=== PATIENT | male | born 1975 | race Caucasian/White ===

== ENCOUNTER → 2017-08-16 | Outpatient (CLI) | payer OTHER ==
[2013-09-11 08:25] VITALS: BP 104/60
--- NOTE | 2017-08-17 06:26 | RAD ---
HISTORY: Cough, shortness of breath Study: Chest PA and lateral Comparison: 09/10/2013, report Findings: There is a pacemaker present on the left. The heart is within normal limits in size. The santino are nor mal. The lung mir are clear. No pleural effusion is identified. The bony thorax is unremarkable. IMPRESSION: No significant abnormality identified Reported By:
== END ==
LOC: RAD 18:53
PROVIDERS: ATTEND Emergency Medicine
DX: R06.02 Shortness of breath (principal)
CPT/HCPCS: 71046

== ENCOUNTER 2021-07-07 22:20 | Inpatient (IN) ==
[2021-07-08] MEDS ORDERED: LASIX IVP ONE ×2 (00:02→00:15)
--- NOTE | 2021-07-08 00:02 | DR.EXTPAIN ---
HPI Time seen Time Seen by Provider: 07/07/21 23:58 PCP Primary Care Physician: [facility] Complaint/Symptoms Chief Complaint Doctor Comments: 46 y/o male, recently hospitalized with Covid 2 weeks ago, presents with worsening swelling of his bilateral legs. + h/o cardiomyopathy. Is on lasix and spironolactone, not helping. Gained 30 lbs since admmission to hospital. Having marked swelling of both legs, from feet up to thighs. + blisters, oozing, erythema of left foot, started few days ago. No fever or chills. Has shortness of breath at times, worse with laying down, exertion. Chief Complaint:: PT AMBULATORY IN ED WITH C/O BILATERAL FEET AND LEGS SWELLING FROM HIS CHF. PT WAS HERE IN ER ON 06/24/21 AND FLOWN TO THE [facility] IN [place], [place]. PT STATES FEET AND LEGS STARTED SWELLING WHILE HE WAS THERE, PUT ON LASIX BUT STATES LASIX IS NOT WORKING. COVID-19 Coronavirus risk:travel/contact w/high risk person: No Has patient experienced Coronavirus symptoms: No Nurses notes reviewed Nurses Notes Review: Yes Source History Provided: Patient Mode of arrival Mode of Arrival: Ambulatory Timing Onset of Chief Complaint: 06/24/21 PMH PMH Past Medical History: Yes Past Medical History: CHF, Diabetes, Dyslipidemia, GERD and Hypertension Past Surgical History: Yes Surgical History: Other Past Surgical History Comment: PPM PENILE IMPLANT Family History History of Family Medical Conditions: Yes Family Medical History: Diabetes Mellitus, Cancer, [place] and Hypertension Social History Does patient currently use any type of tobacco product: No Have you used tobacco products in the last 12 months: No Type of Tobacco Use: None Does any household member use tobacco: No Alcohol Use: None Do you use any recreational Drugs:: No Lives With: Alone Lives Where: Home Travel Risk Coronavirus risk:travel/contact w/high risk person: No Has patient experienced Coronavirus symptoms: No Infectious screening In the last 2 months have you had wt loss of >10#?: NO Have you had fever, night sweats or hemotysis?: No Have you traveled outside the country in the last 6 months?: No Isolation: Standard ROS Review of Systems Constitutional: Malaise and Weakness Eyes: No Symptoms Reported ENTM: No Symptoms Reported Respiratoy: Short of Breath Cardiovascular: Edema Gastrointestinal/Abdominal: No Symptoms Reported Genitourinary: No Symptoms Reported Neurological: No Symptoms Reported Musculoskeletal: Muscle Pain Integumentary: No Symptoms Reported Hematologic/Lymphatic: No Symptoms Reported Psychiatric: No Symptoms Reported All Other Systems: Reviewed and Negative PE Vital Signs Vitals: Pulse Rate 101 Respiratory Rate 27 Blood Pressure [Left Arm] 112/60 Blood Pressure 85/62 O2 Sat by Pulse Oximetry 96 General Limitations: No Limitations General Appearance: Alert and In No Apparent Distress Head Head Exam: Normal Inspection Eyes Eye exam: Normal Appearance, PERRL and EOMI ENT ENT Exam: Normal Exam Neck Neck Exam: Normal Inspection and Full ROM Respiratory Respiratory Exam: Normal Lung Sounds Bilat; negative Accessory Muscle Use and Respiratory Distress Respiratory Exam: Bilateral: Clear to Auscultation Cardiovascular Cardiovascular Exam: Regular Rate, Normal Rhythm and Normal Heart Sounds Abdominal Exam Abdominal Exam: Normal Inspection and Soft; negative Tenderness Extremities Extremities Exam: Edema (4+ edema, with induration, of both lower exts.) Lower Extremities Foot/Toe Exam: Other (L foot - + irregular, oozing blisters of dorsal foot, with erythema/tenderness) Back Back Exam: Normal Inspection Neurological Neurological Exam: Alert, Oriented X3 and CN II-XII Intact; negative Motor Sensory Deficit Psychiatric Psychiatric Exam: Normal Affect Skin Skin Exam: Warm and Dry MDM Differential Diagnosis Differential Diagnosis: Other (fluid overload, cellulitis, renal failure. CHF) COURSE Treatment Treatment: 46 y/o male, diagnosed with covid here 2 weeks ago, transferred to [facility]. H/o cardiomyopathy. + 30 lb weight gain since hospitalization. + marked edema of bilateral lower exts, up thru thighs. W/u initiated. Given IV lasix, with some urine output. Pt has already been on oral lasix/spironolactone. Now with worsening blisters of left dorsal forefoot. Concerning for developing cellulitis, is a diabetic. 0125 - labs show albumin to be low at 2.0. Will give IV albumin to help with his edema. Given IV antibiotic, doxycycline, to cover for possible cellulitis of his left foot. Pt is still + for covid. Recommend admission for further treatment, diuresis. Discussed with Dr Mallory, accepts the admission. ROR Labs Reviewed Laboratory Results Reviewed?: Yes Result Diagrams: 07/08/21 00:14 07/08/21 00:14 Laboratory: WBC 8.2 X10^3/uL (3.6-10.0) 07/08/21 00:14 RBC 3.98 X10^6/uL (4.7-6.0) L 07/08/21 00:14 Hgb 11.2 g/dL (13.5-18.0) L 07/08/21 00:14 Hct 33.4 % (42.0-54.0) L 07/08/21 00:14 MCV 84.0 fL (80.0-100.0) 07/08/21 00:14 MCH 28.1 pg (27.0-34.0) 07/08/21 00:14 MCHC 33.5 g/dL (33.0-35.0) 07/08/21 00:14 RDW 13.5 % (11.6-16.5) 07/08/21 00:14 Plt Count 368 X10^3/uL (150.0-450.0) 07/08/21 00:14 MPV 8.8 fL (7.4-11.0) 07/08/21 00:14 Neut % (Auto) 72.5 % (42.0-75.0) 07/08/21 00:14 Lymph % (Auto) 15.9 % (21.0-51.0) L 07/08/21 00:14 [place] % (Auto) 10.5 % (0.0-13.0) 07/08/21 00:14 Eos % (Auto) 0.5 % (0.9-2.9) L 07/08/21 00:14 Baso % (Auto) 0.6 % (0.2-1.0) 07/08/21 00:14 Neut # (Auto) 6.0 x10^3/uL (2.2-4.8) H 07/08/21 00:14 Lymph # (Auto) 1.3 X10^3/uL (1.3-2.9) 07/08/21 00:14 [place] # (Auto) 0.9 x10^3/uL (0.3-0.8) H 07/08/21 00:14 Eos # (Auto) 0.0 x10^3/uL (0.0-0.2) 07/08/21 00:14 Baso # (Auto) 0.0 X10^3/uL (0.0-0.1) 07/08/21 00:14 Absolute Nucleated RBC 0.0 /100WBC 07/08/21 00:14 Sodium 133 mmol/L (136-145) L 07/08/21 00:14 Corrected Sodium 140 mmol/L (136-145) 07/08/21 00:14 Potassium 4.3 mmol/L (3.5-5.1) 07/08/21 00:14 Chloride 99 mmol/L (98-107) 07/08/21 00:14 Carbon Dioxide 29.5 mmol/L (21-32) 07/08/21 00:14 BUN 21 mg/dL (7-18) H 07/08/21 00:14 Creatinine 1.02 mg/dL (0.70-1.30) 07/08/21 00:14 Est GFR (MDRD) Af Amer > 60 (>60) 07/08/21 00:14 Est GFR (MDRD) Non-Af > 60 (>60) 07/08/21 00:14 Glucose 380 mg/dL (65-99) H 07/08/21 00:14 Calcium 7.4 mg/dL (8.5-10.1) L 07/08/21 00:14 Corrected Calcium 9.0 mg/dL (8.5-10.1) 07/08/21 00:14 Total Bilirubin 0.20 mg/dL (0.2-1.0) 07/08/21 00:14 AST 43 Units/L (15-37) H 07/08/21 00:14 ALT 73 Units/L (12-78) 07/08/21 00:14 Alkaline Phosphatase 275 Units/L (46-116) H 07/08/21 00:14 Creatine Kinase 40 Units/L (39-308) 07/08/21 00:14 CK-MB (CK-2) 1.4 ng/mL (0-4.0) 07/08/21 00:14 CK/CKMB % Calc 3.5 % (<4) 07/08/21 00:14 Troponin I High Sens 19.8 ng/L (4.0-60.0) 07/08/21 00:14 B-Natriuretic Peptide 288 pg/mL (0-79) H 07/08/21 00:14 Total Protein 5.8 g/dL (6.4-8.2) L 07/08/21 00:14 Albumin 2.0 g/dL (3.4-5.0) L 07/08/21 00:14 Globulin 3.8 g/dL (2.5-4.5) 07/08/21 00:14 Albumin/Globulin Ratio 0.5 Ratio (1.1-2.1) L 07/08/21 00:14 SARS CoV-2 RNA Rapid RUBEN Positive (NEGATIVE) A 07/08/21 01:34 Other Results Comments: Labs - does have elevated glucose of 380, BNP mildly elevated at 288. Albumin low at 2.0. Is still covid positive. XRAY XRAY Interpreted by: Both X-ray Results: + bilateral opacifications c/w recent covid infection. EKG Rate: 104 [place]: LAD Rhythm: Paced Block: IVCD ST: Nonsp Opioid Opioid Risk Tool Age (Delvin box if 16-45): No History of Preadolescent Sexual Abuse: No Total: 0 Total Score Risk Category: Low Risk Copyright: Hernandez AREVALO predicting aberrant behaviors Diagnosis Discharge Problem: Cellulitis of foot, left, Dependent edema, COVID-19 virus infection
--- NOTE | 2021-07-08 00:20 | RAD ---
HISTORYFLUID OVERLOAD PMH: CHF, DM, HTN PSH: PPM, PENILE IMPLANTSTUDYCHEST, 1 [id number] trachea is midline. Permanent pacing device. The cardiac silhouette is unremarkable. Patchy bilateral infiltrates unchanged. No pneumothorax. The bony thorax is unremarkable.IMPRESSIONStable portable chest.Electronically signed by: Jesu Ordoñez (Jul 08, 2021 00:18:49)
[2021-07-08 00:31] LABS: BASOPHILS % (AUTO) 0.6 % (0.2-1.0); EOSINOPHILS % (AUTO) 0.5 % (0.9-2.9); HEMATOCRIT 33.4 % (42.0-54.0); HEMOGLOBIN 11.2 g/dL (13.5-18.0); LYMPHOCYTES # (AUTO) 1.3 X10^3/uL (1.3-2.9); LYMPHOCYTES % (AUTO) 15.9 % (21.0-51.0); MEAN CORPUSCULAR HEMOGLOBIN 28.1 pg (27.0-34.0); MEAN CORPUSCULAR HGB CONC 33.5 g/dL (33.0-35.0); MEAN PLATELET VOLUME 8.8 fL (7.4-11.0); MONOCYTES # (AUTO) 0.9 x10^3/uL (0.3-0.8); MONOCYTES % (AUTO) 10.5 % (0.0-13.0); NEUTROPHILS % (AUTO) 72.5 % (42.0-75.0); RED BLOOD COUNT 3.98 X10^6/uL (4.7-6.0); RED CELL DISTRIBUTION WIDTH 13.5 % (11.6-16.5); WHITE BLOOD COUNT 8.2 X10^3/uL (3.6-10.0)
[2021-07-08 00:49] LABS: ALANINE AMINOTRANSFERASE 73 Units/L (12-78); ALKALINE PHOSPHATASE 275 Units/L (46-116); ASPARTATE AMINO TRANSFERASE 43 Units/L (15-37); BLOOD UREA NITROGEN 21 mg/dL (7-18); CALCIUM 7.4 mg/dL (8.5-10.1); CARBON DIOXIDE 29.5 mmol/L (21-32); CHLORIDE 99 mmol/L (98-107); CKMB % 3.5 % (<4); COR NA(FOR HYPERGLY) 140 mmol/L (136-145); CREATINE KINASE 40 Units/L (39-308); CREATINE KINASE MB 1.4 ng/mL (0-4.0); CREATININE 1.02 mg/dL (0.70-1.30); SODIUM 133 mmol/L (136-145); TOTAL PROTEIN 5.8 g/dL (6.4-8.2); eGFR NON BLACK RACES > 60 (>60)
[2021-07-08] MEDS ORDERED: ALBUMIN HUMAN 25%- 100 ML 100 ML IV ONE (01:33)
[2021-07-08] MEDS ORDERED: VIBRAMYCIN 100 MG in D5W 250 ML IV 250 ML IV ONE (01:59)
[2021-07-08 02:56] LABS: BILIRUBIN,URINE NEGATIVE (NEGATIVE); BLOOD/HEMOGLOBIN,URINE NEGATIVE (NEGATIVE); GLUCOSE, URINE 4+ (NEGATIVE); KETONES,URINE NEGATIVE (NEGATIVE); LEUKOCYTE ESTERASE ,URINE NEGATIVE (NEGATIVE); NITRITES,URINE NEGATIVE (NEGATIVE); PROTEIN,URINE 1+ (NEGATIVE); UROBILINOGEN,URINE NORMAL (NORMAL)
[2021-07-08 03:56] LABS: APPEARANCE,URINE CLEAR (CLEAR); BACTERIA,URINE TRACE /HPF (NEGATIVE); COLOR,URINE YELLOW (YELLOW); RBC,URINE NONE SEEN /HPF (0-3); SQUAMOUS EPITHELIAL CELL,UR NEGATIVE /HPF (NEGATIVE)
[2021-07-08 03:57] LABS: HYALINE CASTS, URINE FEW /LPF (NEGATIVE)
[2021-07-08 04:29] VITALS: BMI 31.8
[2021-07-08 05:30] LABS: BASOPHILS # (AUTO) 0.1 X10^3/uL (0.0-0.1); BASOPHILS % (AUTO) 0.8 % (0.2-1.0); EOSINOPHILS # (AUTO) 0.1 x10^3/uL (0.0-0.2); EOSINOPHILS % (AUTO) 0.8 % (0.9-2.9); HEMATOCRIT 35.7 % (42.0-54.0); HEMOGLOBIN 11.9 g/dL (13.5-18.0); LYMPHOCYTES # (AUTO) 1.3 X10^3/uL (1.3-2.9); LYMPHOCYTES % (AUTO) 16.3 % (21.0-51.0); MEAN CORPUSCULAR HGB CONC 33.3 g/dL (33.0-35.0); MEAN CORPUSCULAR VOLUME 84.2 fL (80.0-100.0); MEAN PLATELET VOLUME 9.2 fL (7.4-11.0); MONOCYTES # (AUTO) 0.8 x10^3/uL (0.3-0.8); MONOCYTES % (AUTO) 10.1 % (0.0-13.0); NEUTROPHILS # (AUTO) 5.7 x10^3/uL (2.2-4.8); RED BLOOD COUNT 4.24 X10^6/uL (4.7-6.0); RED CELL DISTRIBUTION WIDTH 13.6 % (11.6-16.5)
[2021-07-08 05:44] LABS: ALANINE AMINOTRANSFERASE 78 Units/L (12-78); ALBUMIN 2.6 g/dL (3.4-5.0); ALKALINE PHOSPHATASE 281 Units/L (46-116); ASPARTATE AMINO TRANSFERASE 41 Units/L (15-37); BLOOD UREA NITROGEN 22 mg/dL (7-18); CALCIUM 7.7 mg/dL (8.5-10.1); CARBON DIOXIDE 28.3 mmol/L (21-32); CHLORIDE 99 mmol/L (98-107); COR CA(FOR HYPOALB) 8.8 mg/dL (8.5-10.1); COR NA(FOR HYPERGLY) 141 mmol/L (136-145); CREATININE 0.94 mg/dL (0.70-1.30); SODIUM 135 mmol/L (136-145); TOTAL PROTEIN 6.5 g/dL (6.4-8.2); eGFR NON BLACK RACES > 60 (>60)
[2021-07-08] MEDS: NovoLIN R (or HumuLIN R) SUBCUT PRN ×4 (05:58→21:04)
[2021-07-08] MEDS: ULTRAM PO PRN ×3 (05:59→21:10)
[2021-07-08] MEDS: PriLOSEC PO SCH ×2 (08:29→21:05)
[2021-07-08] MEDS: VIBRAMYCIN 100 MG in D5W 250 ML IV 250 ML IV SCH ×2 (08:30→21:07)
[2021-07-08] MEDS: LASIX IVP SCH ×2 (08:38→16:38)
[2021-07-08] MEDS: ALDACTONE TAB 25 MG PO SCH (08:50)
[2021-07-08] MEDS ORDERED: ZESTRIL TAB 5 MG PO SCH (09:00)
[2021-07-08] MEDS ORDERED: CLEOCIN PO SCH (09:00)
[2021-07-08] MEDS ORDERED: LISINOPRIL 40 MG PO SCH (09:00)
[2021-07-08] MEDS ORDERED: LOVENOX INJ 40 MG SYR SC SCH (10:00)
[2021-07-08] MEDS: COREG TAB 12.5 MG PO SCH ×2 (10:25→21:01)
--- NOTE | 2021-07-08 10:33 | DR.H&P ---
H&P History & Physical for Day of: H&P Date: 07/08/21 Chief Complaint Chief Complaint: leg swelling and redness Allergies Allergies Allergy/AdvReac Type Severity Reaction Status Date / Time Penicillins Allergy Verified 06/24/21 15:06 History of Present Illness History of Present Illness: Mr Gay is a 46y/o male with a PMH of cardiomyopathy s/p ACID, CHF, Type 2 DM, HTN, HLD and anxiety presented with worsening bilateral leg swelling, redness and drainage. Patient was seen here in the ER on 06/24/21 for URI and CHF Sx, found to be covid + so was transferred to [facility] for further care. Patient states he was admitted there for a week and treated for COVID pneumonia. He had a device check there and everything was working well. He states since he has been home, his leg swelling has worsened. He states his left leg has multiple open wounds and blisters with drainage. He also has SOB on exertion. Denies cough, fever or chills. He does see Cardiology in [place]. Patient remains on room air. ER work-up - COVID-19 + - Labs: Hgb 11.9 Glucose 359 trop (-) Patient was started on IV lasix and IV antibiotics for leg wounds. Plan: Continue telemetry, strict I/Os, daily weights. Continue IV lasix 40 mg BID, resume home medications. Will hold lisinopril due to borderline low BP. Continue doxycycline, add clindamycin. Get wound cultures. Daily dressing changes. Advised patient to keep his legs elevated. Patient reports severe anxiety with laying down and prefers to sit up with legs on the side of the bed. He states he will try to keep them propped up to help with the swelling. Continue pain control. Increase lantus to 20 units qhS, continue SSI. Need to obtain records from recent admission at the [facility] in [place]. Monitor AM lab s/imaging. Past Medical History Past Medical History: CHF, Diabetes, Dyslipidemia, GERD and Hypertension Additional Medical History: Hx Cardiac Arrhythmia, Diabetic neuropathy Past Surgical History Surgical History: Other Family History Family Medical History: Diabetes Mellitus, Coronary Artery Disease and Hypertension Social History Does patient currently use any type of tobacco product: No Have you used tobacco products in the last 12 months: No Type of Tobacco Use: None Does any household member use tobacco: No Alcohol Use: None Drug Use: None Medications Home Medications: Penicillins Allergy (Verified 06/24/21 15:06) CONTINUE taking the following medications furosemide 40 mg PO BID 07/08/21 [History] lisinopril 2.5 mg PO DAILY 07/08/21 [History] spironolactone 25 mg PO DAILY 07/08/21 [History] Labs Result Diagrams: 07/08/21 04:47 07/08/21 04:47 Labs: Laboratory WBC 8.0 X10^3/uL (3.6-10.0) 07/08/21 04:47 RBC 4.24 X10^6/uL (4.7-6.0) L 07/08/21 04:47 Hgb 11.9 g/dL (13.5-18.0) L 07/08/21 04:47 Hct 35.7 % (42.0-54.0) L 07/08/21 04:47 MCV 84.2 fL (80.0-100.0) 07/08/21 04:47 MCH 28.0 pg (27.0-34.0) 07/08/21 04:47 MCHC 33.3 g/dL (33.0-35.0) 07/08/21 04:47 RDW 13.6 % (11.6-16.5) 07/08/21 04:47 Plt Count 353 X10^3/uL (150.0-450.0) 07/08/21 04:47 MPV 9.2 fL (7.4-11.0) 07/08/21 04:47 Neut % (Auto) 72.0 % (42.0-75.0) 07/08/21 04:47 Lymph % (Auto) 16.3 % (21.0-51.0) L 07/08/21 04:47 [place] % (Auto) 10.1 % (0.0-13.0) 07/08/21 04:47 Eos % (Auto) 0.8 % (0.9-2.9) L 07/08/21 04:47 Baso % (Auto) 0.8 % (0.2-1.0) 07/08/21 04:47 Neut # (Auto) 5.7 x10^3/uL (2.2-4.8) H 07/08/21 04:47 Lymph # (Auto) 1.3 X10^3/uL (1.3-2.9) 07/08/21 04:47 [place] # (Auto) 0.8 x10^3/uL (0.3-0.8) 07/08/21 04:47 Eos # (Auto) 0.1 x10^3/uL (0.0-0.2) 07/08/21 04:47 Baso # (Auto) 0.1 X10^3/uL (0.0-0.1) 07/08/21 04:47 Absolute Nucleated RBC 0.0 /100WBC 07/08/21 04:47 Sodium 135 mmol/L (136-145) L 07/08/21 04:47 Corrected Sodium 141 mmol/L (136-145) 07/08/21 04:47 Potassium 4.1 mmol/L (3.5-5.1) 07/08/21 04:47 Chloride 99 mmol/L (98-107) 07/08/21 04:47 Carbon Dioxide 28.3 mmol/L (21-32) 07/08/21 04:47 BUN 22 mg/dL (7-18) H 07/08/21 04:47 Creatinine 0.94 mg/dL (0.70-1.30) 07/08/21 04:47 Est GFR (MDRD) Af Amer > 60 (>60) 07/08/21 04:47 Est GFR (MDRD) Non-Af > 60 (>60) 07/08/21 04:47 Glucose 359 mg/dL (65-99) H 07/08/21 04:47 Calcium 7.7 mg/dL (8.5-10.1) L 07/08/21 04:47 Corrected Calcium 8.8 mg/dL (8.5-10.1) 07/08/21 04:47 Total Bilirubin 0.50 mg/dL (0.2-1.0) 07/08/21 04:47 AST 41 Units/L (15-37) H 07/08/21 04:47 ALT 78 Units/L (12-78) 07/08/21 04:47 Alkaline Phosphatase 281 Units/L (46-116) H 07/08/21 04:47 Creatine Kinase 40 Units/L (39-308) 07/08/21 00:14 CK-MB (CK-2) 1.4 ng/mL (0-4.0) 07/08/21 00:14 CK/CKMB % Calc 3.5 % (<4) 07/08/21 00:14 Troponin I High Sens 19.8 ng/L (4.0-60.0) 07/08/21 00:14 B-Natriuretic Peptide 288 pg/mL (0-79) H 07/08/21 00:14 Total Protein 6.5 g/dL (6.4-8.2) 07/08/21 04:47 Albumin 2.6 g/dL (3.4-5.0) L 07/08/21 04:47 Globulin 3.9 g/dL (2.5-4.5) 07/08/21 04:47 Albumin/Globulin Ratio 0.7 Ratio (1.1-2.1) L 07/08/21 04:47 Specimen Type Clean catch urine 07/08/21 02:42 Urine Color Yellow (YELLOW) 07/08/21 02:42 Urine Appearance Clear (CLEAR) 07/08/21 02:42 Urine pH 6.0 (5.0 - 8.0) 07/08/21 02:42 Ur Specific [place] 1.015 (1.000-1.030) 07/08/21 02:42 Urine Protein 1+ (NEGATIVE) 07/08/21 02:42 Urine Glucose (UA) 4+ (NEGATIVE) 07/08/21 02:42 Urine Ketones Negative (NEGATIVE) 07/08/21 02:42 Urine Occult Blood Negative (NEGATIVE) 07/08/21 02:42 Urine Nitrite Negative (NEGATIVE) 07/08/21 02:42 Urine Bilirubin Negative (NEGATIVE) 07/08/21 02:42 Urine Urobilinogen Normal (NORMAL) 07/08/21 02:42 Ur Leukocyte Esterase Negative (NEGATIVE) 07/08/21 02:42 Urine RBC None seen /HPF (0-3) 07/08/21 02:42 Urine WBC None seen /HPF (0-5) 07/08/21 02:42 Ur Squamous Epith Cells Negative /HPF (NEGATIVE) 07/08/21 02:42 Urine Bacteria Trace /HPF (NEGATIVE) 07/08/21 02:42 Hyaline Casts Few /LPF (NEGATIVE) 07/08/21 02:42 Ur Culture Indicated? No/not indicated 07/08/21 02:42 SARS CoV-2 RNA Rapid RUBEN Positive (NEGATIVE) A 07/08/21 01:34 Review of Systems Constitutional: No Symptoms Reported Eyes: No Symptoms Reported ENT: No Symptoms Reported Respiratory: SOB with Excertion Cardiovascular: Edema Gastrointestinal: No Symptoms Reported Genitourinary: No Symptoms Reported Musculoskeletal: No Symptoms Reported Skin: Wound and Other (left leg and foot wound ) Neurological: No Symptoms Reported Physical Exam Vital Signs: Temperature 97.8 F Pulse Rate [Bilateral Radial] 103 Pulse Rate 103 Respiratory Rate 20 Blood Pressure [Left Arm] 98/70 Blood Pressure 99/71 O2 Sat by Pulse Oximetry 89 Oriented: Normal Eyes: Normal Ear: Normal Nose: Normal Throat: Normal Respiratory: RLL Rales and LLL Rales Cardiovascular: Normal and Edema (3+ pitting edema, erythema in both LE ) Auscultation: Bowel Sounds: Normal Tenderness: Normal Skin: Wound (left foot and leg wounds - dressing intact ) Psychiatric: Anxiety Mood Description: Calm Affect: Normal Speech Pattern: Clear and Appropriate Assessment/Plan (1) Dependent edema: Status: Acute (2) Cellulitis of foot, left: Status: Acute (3) COVID-19: Status: Acute (4) Diabetes mellitus, type 2: Qualifiers: Diabetes mellitus complication status: with hyperglycemia Diabetes mellitus assistant terminal manager insulin use: with assistant terminal manager use Qualified Code(s): E11.65 - Type 2 diabetes mellitus with hyperglycemia; Z79.4 - extermination supervisor (current) use of insulin Status: Chronic (5) History of cardiac arrhythmia: Status: Chronic (6) Hypertension: Qualifiers: Hypertension type: primary hypertension Qualified Code(s): I10 - Essential (primary) hypertension Status: Chronic (7) GERD (gastroesophageal reflux disease): Qualifiers: Esophagitis presence: esophagitis presence not specified Qualified Code(s): K21.9 - Gastro-esophageal reflux disease without esophagitis Status: Chronic (8) CHF (congestive heart failure): Qualifiers: Heart failure chronicity: acute on chronic Heart failure type: unspecified Qualified Code(s): I50.9 - Heart failure, unspecified Status: Acute (9) AICD (automatic cardioverter/defibrillator) present: Status: Acute Review H&P Reviewed: Yes Patient was examined?: Yes
[2021-07-08] MEDS: CLEOCIN 300 MG IV PREMIX 300 MG/50 ML BAG IV SCH ×3 (11:00→22:32)
[2021-07-08] MEDS: NS 500 ML IV 500 ML IV SCH (11:00)
[2021-07-08] MEDS: KLONOPIN TAB 0.5 MG PO PRN ×2 (12:30→21:10)
[2021-07-08] MEDS: SNACK - Diabetic Appropriate PO SCH (20:42)
[2021-07-08] MEDS ORDERED: ZOCOR TAB 40 MG PO SCH (21:00)
[2021-07-08] MEDS ORDERED: LANTUS SC SCH ×2 (21:00)
[2021-07-08] MEDS: NEURONTIN CAP 300 MG PO SCH (21:03)
[2021-07-09 05:25] LABS: BASOPHILS # (AUTO) 0.1 X10^3/uL (0.0-0.1); BASOPHILS % (AUTO) 0.7 % (0.2-1.0); EOSINOPHILS % (AUTO) 0.4 % (0.9-2.9); HEMOGLOBIN 11.7 g/dL (13.5-18.0); LYMPHOCYTES # (AUTO) 1.2 X10^3/uL (1.3-2.9); MEAN CORPUSCULAR HGB CONC 33.3 g/dL (33.0-35.0); MEAN CORPUSCULAR VOLUME 84.1 fL (80.0-100.0); MONOCYTES # (AUTO) 0.9 x10^3/uL (0.3-0.8); NEUTROPHILS # (AUTO) 6.2 x10^3/uL (2.2-4.8); NEUTROPHILS % (AUTO) 73.9 % (42.0-75.0); RED BLOOD COUNT 4.17 X10^6/uL (4.7-6.0); RED CELL DISTRIBUTION WIDTH 13.9 % (11.6-16.5); WHITE BLOOD COUNT 8.4 X10^3/uL (3.6-10.0)
[2021-07-09 05:51] LABS: BLOOD UREA NITROGEN 27 mg/dL (7-18); CALCIUM 7.5 mg/dL (8.5-10.1); CARBON DIOXIDE 26.7 mmol/L (21-32); CHLORIDE 96 mmol/L (98-107); COR NA(FOR HYPERGLY) 136 mmol/L (136-145); SODIUM 132 mmol/L (136-145); eGFR NON BLACK RACES > 60 (>60)
[2021-07-09] MEDS: NovoLIN R (or HumuLIN R) SUBCUT PRN ×4 (06:10→20:06)
[2021-07-09] MEDS: CLEOCIN 300 MG IV PREMIX 300 MG/50 ML BAG IV SCH ×3 (06:11→23:00)
[2021-07-09] MEDS: COREG TAB 12.5 MG PO SCH (08:14)
[2021-07-09] MEDS: ALDACTONE TAB 25 MG PO SCH (08:14)
[2021-07-09] MEDS: PriLOSEC PO SCH ×2 (08:40→20:04)
[2021-07-09] MEDS: LASIX IVP SCH ×2 (08:40→17:46)
[2021-07-09] MEDS: VIBRAMYCIN 100 MG in D5W 250 ML IV 250 ML IV SCH ×2 (08:40→20:04)
[2021-07-09] MEDS ORDERED: ZOLOFT ONE (09:09)
[2021-07-09] MEDS ORDERED: GLUCOPHAGE ONE ×2 (09:09→19:45)
[2021-07-09] MEDS: TOPROL XL PO SCH (09:22)
[2021-07-09] MEDS: ELIQUIS PO SCH ×2 (09:23→20:04)
[2021-07-09] MEDS: GLUCOPHAGE PO SCH ×2 (09:23→20:04)
[2021-07-09] MEDS: ZOLOFT PO SCH (09:24)
[2021-07-09] MEDS: NS 500 ML IV 500 ML IV SCH (10:53)
[2021-07-09] MEDS: ULTRAM PO PRN ×2 (10:54→20:04)
--- NOTE | 2021-07-09 13:35 | PCM.PROG ---
Progress Note Progress Note for Day of Date of Exam: 07/09/21 Subjective Subjective: Patient seen at bedside, no events overnight. He feels slightly better. His leg edema has improved. He has been sitting up in the chair with legs elevated. He denies fever or chills, denies N/V/D. Good UOP in 24 hrs. Labs reviewed Plan: dressing change today on both legs, follow culture results. Continue IV antibiotics. Continue IV lasix. Monitor I/Os, daily weights. Resume home med ications. Will increase Lantus to 30 units qhS, continue SSI and metformin. Monitor AM labs/imaging. Past Medical Family Social History Past Med/Fam/Surg Hx: No changes since H&P Allergies: Allergies Penicillins Allergy (Verified 06/24/21 15:06) Review of Systems ROS: No change since H&P Vital Signs and I&O's Vital Signs: Temperature 97.7 F Pulse Rate [Bilateral Radial] 103 Pulse Rate 85 Respiratory Rate 18 Blood Pressure [Left Arm] 98/70 Blood Pressure 92/70 O2 Sat by Pulse Oximetry 96 Intake and Output: Intake & Output 07/06/21 07/07/21 07/08/21 07/09/21 23:59 23:59 23:59 23:59 Intake Total 2790 / 2790 300 / 300 Output Total 2350 / 2350 450 / 450 Balance 440 / 440 -150 / -150 Physical Exam Oriented: Normal Eyes: Normal Ear: Normal Nose: Normal Throat: Normal Respiratory: Generalized and Diminished Cardiovascular: Normal and Edema (3+ pitting edema, erythema in both LE, dressing soaked in drainage ) Auscultation: Bowel Sounds: Normal Tenderness: Normal Skin: Wound (left foot and leg wounds - dressing soaked with drainage ) Psychiatric: Normal Mood Description: Calm Affect: Normal Speech Pattern: Clear and Appropriate Laboratory and Diagnostics Result Diagrams: 07/09/21 05:10 07/09/21 05:10 Labs: 07/08/21 12:04 Foot - Left Wound Gram Stain - Final 07/08/21 12:04 Foot - Left Wound Culture - Preliminary 07/08/21 12:04 Leg - Left Wound Gram Stain - Final 07/08/21 12:04 Leg - Left Wound Culture - Preliminary Laboratory WBC 8.4 X10^3/uL (3.6-10.0) 07/09/21 05:10 RBC 4.17 X10^6/uL (4.7-6.0) L 07/09/21 05:10 Hgb 11.7 g/dL (13.5-18.0) L 07/09/21 05:10 Hct 35.0 % (42.0-54.0) L 07/09/21 05:10 MCV 84.1 fL (80.0-100.0) 07/09/21 05:10 MCH 28.0 pg (27.0-34.0) 07/09/21 05:10 MCHC 33.3 g/dL (33.0-35.0) 07/09/21 05:10 RDW 13.9 % (11.6-16.5) 07/09/21 05:10 Plt Count 373 X10^3/uL (150.0-450.0) 07/09/21 05:10 MPV 9.0 fL (7.4-11.0) 07/09/21 05:10 Neut % (Auto) 73.9 % (42.0-75.0) 07/09/21 05:10 Lymph % (Auto) 14.0 % (21.0-51.0) L 07/09/21 05:10 [place] % (Auto) 11.0 % (0.0-13.0) 07/09/21 05:10 Eos % (Auto) 0.4 % (0.9-2.9) L 07/09/21 05:10 Baso % (Auto) 0.7 % (0.2-1.0) 07/09/21 05:10 Neut # (Auto) 6.2 x10^3/uL (2.2-4.8) H 07/09/21 05:10 Lymph # (Auto) 1.2 X10^3/uL (1.3-2.9) L 07/09/21 05:10 [place] # (Auto) 0.9 x10^3/uL (0.3-0.8) H 07/09/21 05:10 Eos # (Auto) 0.0 x10^3/uL (0.0-0.2) 07/09/21 05:10 Baso # (Auto) 0.1 X10^3/uL (0.0-0.1) 07/09/21 05:10 Absolute Nucleated RBC 0.1 /100WBC 07/09/21 05:10 Sodium 132 mmol/L (136-145) L 07/09/21 05:10 Corrected Sodium 136 mmol/L (136-145) 07/09/21 05:10 Potassium 4.4 mmol/L (3.5-5.1) 07/09/21 05:10 Chloride 96 mmol/L (98-107) L 07/09/21 05:10 Carbon Dioxide 26.7 mmol/L (21-32) 07/09/21 05:10 BUN 27 mg/dL (7-18) H 07/09/21 05:10 Creatinine 0.90 mg/dL (0.70-1.30) 07/09/21 05:10 Est GFR (MDRD) Af Amer > 60 (>60) 07/09/21 05:10 Est GFR (MDRD) Non-Af > 60 (>60) 07/09/21 05:10 Glucose 287 mg/dL (65-99) H 07/09/21 05:10 POC Glucose (mg/dL) 327 mg/dL (65-99) H 07/09/21 11:37 Calcium 7.5 mg/dL (8.5-10.1) L 07/09/21 05:10 Corrected Calcium 8.8 mg/dL (8.5-10.1) 07/08/21 04:47 Total Bilirubin 0.50 mg/dL (0.2-1.0) 07/08/21 04:47 AST 41 Units/L (15-37) H 07/08/21 04:47 ALT 78 Units/L (12-78) 07/08/21 04:47 Alkaline Phosphatase 281 Units/L (46-116) H 07/08/21 04:47 Creatine Kinase 40 Units/L (39-308) 07/08/21 00:14 CK-MB (CK-2) 1.4 ng/mL (0-4.0) 07/08/21 00:14 CK/CKMB % Calc 3.5 % (<4) 07/08/21 00:14 Troponin I High Sens 19.8 ng/L (4.0-60.0) 07/08/21 00:14 B-Natriuretic Peptide 288 pg/mL (0-79) H 07/08/21 00:14 Total Protein 6.5 g/dL (6.4-8.2) 07/08/21 04:47 Albumin 2.6 g/dL (3.4-5.0) L 07/08/21 04:47 Globulin 3.9 g/dL (2.5-4.5) 07/08/21 04:47 Albumin/Globulin Ratio 0.7 Ratio (1.1-2.1) L 07/08/21 04:47 Specimen Type Clean catch urine 07/08/21 02:42 Urine Color Yellow (YELLOW) 07/08/21 02:42 Urine Appearance Clear (CLEAR) 07/08/21 02:42 Urine pH 6.0 (5.0 - 8.0) 07/08/21 02:42 Ur Specific [place] 1.015 (1.000-1.030) 07/08/21 02:42 Urine Protein 1+ (NEGATIVE) 07/08/21 02:42 Urine Glucose (UA) 4+ (NEGATIVE) 07/08/21 02:42 Urine Ketones Negative (NEGATIVE) 07/08/21 02:42 Urine Occult Blood Negative (NEGATIVE) 07/08/21 02:42 Urine Nitrite Negative (NEGATIVE) 07/08/21 02:42 Urine Bilirubin Negative (NEGATIVE) 07/08/21 02:42 Urine Urobilinogen Normal (NORMAL) 07/08/21 02:42 Ur Leukocyte Esterase Negative (NEGATIVE) 07/08/21 02:42 Urine RBC None seen /HPF (0-3) 07/08/21 02:42 Urine WBC None seen /HPF (0-5) 07/08/21 02:42 Ur Squamous Epith Cells Negative /HPF (NEGATIVE) 07/08/21 02:42 Urine Bacteria Trace /HPF (NEGATIVE) 07/08/21 02:42 Hyaline Casts Few /LPF (NEGATIVE) 07/08/21 02:42 Ur Culture Indicated? No/not indicated 07/08/21 02:42 SARS CoV-2 RNA Rapid RUBEN Positive (NEGATIVE) A 07/08/21 01:34 Plan (1) Leg wound, left: Status: Acute Qualifiers: Encounter type: initial encounter Qualified Code(s): S81.802A - Unspecified open wound, left lower leg, initial encounter (2) Dependent edema: Status: Acute (3) Cellulitis of foot, left: Status: Acute (4) COVID-19: Status: Acute (5) Diabetes mellitus, type 2: Status: Chronic Qualifiers: Diabetes mellitus complication status: with hyperglycemia Diabetes mellitus care home insulin use: with care home use Qualified Code(s): E11.65 - Type 2 diabetes mellitus with hyperglycemia; Z79.4 - prison (current) use of insulin (6) History of cardiac arrhythmia: Status: Chronic (7) Hypertension: Status: Chronic Qualifiers: Hypertension type: primary hypertension Qualified Code(s): I10 - Essential (primary) hypertension (8) GERD (gastroesophageal reflux disease): Status: Chronic Qualifiers: Esophagitis presence: esophagitis presence not specified Qualified Code(s): K21.9 - Gastro-esophageal reflux disease without esophagitis (9) CHF (congestive heart failure): Status: Acute Qualifiers: Heart failure chronicity: acute on chronic Heart failure type: unspec ified Qualified Code(s): I50.9 - Heart failure, unspecified (10) AICD (automatic cardioverter/defibrillator) present: Status: Acute
[2021-07-09] MEDS ORDERED: LANTUS SC ONE (19:47)
[2021-07-09] MEDS: SNACK - Diabetic Appropriate PO SCH (20:00)
[2021-07-09] MEDS: LANTUS SC SCH (20:05)
[2021-07-09] MEDS: NEURONTIN CAP 300 MG PO SCH (20:05)
[2021-07-10] MEDS: CLEOCIN 300 MG IV PREMIX 300 MG/50 ML BAG IV SCH ×3 (05:30→22:54)
[2021-07-10 06:12] LABS: BLOOD UREA NITROGEN 29 mg/dL (7-18); CALCIUM 8.1 mg/dL (8.5-10.1); CARBON DIOXIDE 28.1 mmol/L (21-32); CHLORIDE 95 mmol/L (98-107); COR NA(FOR HYPERGLY) 135 mmol/L (136-145); CREATININE 0.97 mg/dL (0.70-1.30); SODIUM 133 mmol/L (136-145); eGFR NON BLACK RACES > 60 (>60)
[2021-07-10 06:43] LABS: BASOPHILS % (AUTO) 0.5 % (0.2-1.0); EOSINOPHILS # (AUTO) 0.1 x10^3/uL (0.0-0.2); EOSINOPHILS % (AUTO) 0.6 % (0.9-2.9); HEMATOCRIT 40.7 % (42.0-54.0); HEMOGLOBIN 13.5 g/dL (13.5-18.0); LYMPHOCYTES # (AUTO) 2.2 X10^3/uL (1.3-2.9); LYMPHOCYTES % (AUTO) 22.5 % (21.0-51.0); MEAN CORPUSCULAR HEMOGLOBIN 28.3 pg (27.0-34.0); MEAN CORPUSCULAR HGB CONC 33.2 g/dL (33.0-35.0); MEAN CORPUSCULAR VOLUME 85.3 fL (80.0-100.0); MEAN PLATELET VOLUME 9.4 fL (7.4-11.0); MONOCYTES % (AUTO) 10.5 % (0.0-13.0); NEUTROPHILS # (AUTO) 6.3 x10^3/uL (2.2-4.8); NEUTROPHILS % (AUTO) 65.9 % (42.0-75.0); RED BLOOD COUNT 4.77 X10^6/uL (4.7-6.0); RED CELL DISTRIBUTION WIDTH 13.9 % (11.6-16.5); WHITE BLOOD COUNT 9.6 X10^3/uL (3.6-10.0)
[2021-07-10] MEDS ORDERED: ZOLOFT ONE (08:05)
[2021-07-10] MEDS ORDERED: GLUCOPHAGE ONE ×2 (08:05→19:29)
[2021-07-10] MEDS: GLUCOPHAGE PO SCH ×2 (08:10→20:04)
[2021-07-10] MEDS: ZOLOFT PO SCH (08:11)
[2021-07-10] MEDS: ALDACTONE TAB 25 MG PO SCH (08:14)
[2021-07-10] MEDS: PriLOSEC PO SCH ×2 (08:14→20:05)
[2021-07-10] MEDS: ELIQUIS PO SCH ×2 (08:14→20:05)
[2021-07-10] MEDS: TOPROL XL PO SCH (08:15)
[2021-07-10] MEDS: LASIX IVP SCH ×2 (08:21→16:25)
[2021-07-10] MEDS: VIBRAMYCIN 100 MG in D5W 250 ML IV 250 ML IV SCH ×2 (08:21→20:05)
[2021-07-10] MEDS: NS 500 ML IV 500 ML IV SCH (11:00)
--- NOTE | 2021-07-10 12:26 | PCM.PROG ---
Progress Note Progress Note for Day of Date of Exam: 07/10/21 Subjective Subjective: Patient seen at bedside, no events overnight. He is doing a lot better. His leg edema continues to improve, very less drainage noted on the dressings. He denies fever or chills. He reports normal appetite. Wound Cx growing Gram (-) rods. Patient's FSBG have improved. Labs reviewed Plan: dressing change today on both legs, follow final culture results. Continue IV antibiotics. Continue IV lasix. Monitor I/Os, daily weights. Continue home medications. Continue lantus 30 units, SSI and metformin. Possible discharge tomorrow. Monitor AM labs/imaging. Past Medical Family Social History Past Med/Fam/Surg Hx: No changes since H&P Allergies: Allergies Penicillins Allergy (Verified 06/24/21 15:06) Review of Systems ROS: No change since H&P Vital Signs and I&O's Vital Signs: Temperature 98.3 F Pulse Rate [Bilateral Radial] 103 Pulse Rate 92 Respiratory Rate 18 Blood Pressure [Left Arm] 98/70 Blood Pressure 106/78 O2 Sat by Pulse Oximetry 98 Intake and Output: Intake & Output 07/07/21 07/08/21 07/09/21 07/10/21 23:59 23:59 23:59 23:59 Intake Total 2790 / 2790 2541 / 2541 573 / 573 Output Total 2350 / 2350 2450 / 2450 200 / 200 Balance 440 / 440 91 / 91 373 / 373 Physical Exam Oriented: Normal Eyes: Normal Ear: Normal Nose: Normal Throat: Normal Respiratory: Generalized and Diminished Cardiovascular: Normal and Edema (edema improved, mild erythema present ) Auscultation: Bowel Sounds: Normal Tenderness: Normal Skin: Wound (left foot and leg wounds ) Musculoskeletal: Normal Psychiatric: Normal Mood Description: Calm Affect: Normal Speech Pattern: Clear and Appropriate Laboratory and Diagnostics Result Diagrams: 07/10/21 04:45 07/10/21 04:45 Labs: 07/08/21 12:04 Foot - Left Wound Gram Stain - Final 07/08/21 12:04 Foot - Left Wound Culture - Preliminary 07/08/21 12:04 Leg - Left Wound Gram Stain - Final 07/08/21 12:04 Leg - Left Wound Culture - Preliminary Laboratory WBC 9.6 X10^3/uL (3.6-10.0) 07/10/21 04:45 RBC 4.77 X10^6/uL (4.7-6.0) 07/10/21 04:45 Hgb 13.5 g/dL (13.5-18.0) 07/10/21 04:45 Hct 40.7 % (42.0-54.0) L 07/10/21 04:45 MCV 85.3 fL (80.0-100.0) 07/10/21 04:45 MCH 28.3 pg (27.0-34.0) 07/10/21 04:45 MCHC 33.2 g/dL (33.0-35.0) 07/10/21 04:45 RDW 13.9 % (11.6-16.5) 07/10/21 04:45 Plt Count 442 X10^3/uL (150.0-450.0) 07/10/21 04:45 MPV 9.4 fL (7.4-11.0) 07/10/21 04:45 Neut % (Auto) 65.9 % (42.0-75.0) 07/10/21 04:45 Lymph % (Auto) 22.5 % (21.0-51.0) 07/10/21 04:45 [place] % (Auto) 10.5 % (0.0-13.0) 07/10/21 04:45 Eos % (Auto) 0.6 % (0.9-2.9) L 07/10/21 04:45 Baso % (Auto) 0.5 % (0.2-1.0) 07/10/21 04:45 Neut # (Auto) 6.3 x10^3/uL (2.2-4.8) H 07/10/21 04:45 Lymph # (Auto) 2.2 X10^3/uL (1.3-2.9) 07/10/21 04:45 [place] # (Auto) 1.0 x10^3/uL (0.3-0.8) H 07/10/21 04:45 Eos # (Auto) 0.1 x10^3/uL (0.0-0.2) 07/10/21 04:45 Baso # (Auto) 0.0 X10^3/uL (0.0-0.1) 07/10/21 04:45 Absolute Nucleated RBC 0.1 /100WBC 07/10/21 04:45 Sodium 133 mmol/L (136-145) L 07/10/21 04:45 Corrected Sodium 135 mmol/L (136-145) L 07/10/21 04:45 Potassium 3.7 mmol/L (3.5-5.1) 07/10/21 04:45 Chloride 95 mmol/L (98-107) L 07/10/21 04:45 Carbon Dioxide 28.1 mmol/L (21-32) 07/10/21 04:45 BUN 29 mg/dL (7-18) H 07/10/21 04:45 Creatinine 0.97 mg/dL (0.70-1.30) 07/10/21 04:45 Est GFR (MDRD) Af Amer > 60 (>60) 07/10/21 04:45 Est GFR (MDRD) Non-Af > 60 (>60) 07/10/21 04:45 Glucose 172 mg/dL (65-99) H 07/10/21 04:45 POC Glucose (mg/dL) 153 mg/dL (65-99) H 07/10/21 12:14 Calcium 8.1 mg/dL (8.5-10.1) L 07/10/21 04:45 Corrected Calcium 8.8 mg/dL (8.5-10.1) 07/08/21 04:47 Total Bilirubin 0.50 mg/dL (0.2-1.0) 07/08/21 04:47 AST 41 Units/L (15-37) H 07/08/21 04:47 ALT 78 Units/L (12-78) 07/08/21 04:47 Alkaline Phosphatase 281 Units/L (46-116) H 07/08/21 04:47 Creatine Kinase 40 Units/L (39-308) 07/08/21 00:14 CK-MB (CK-2) 1.4 ng/mL (0-4.0) 07/08/21 00:14 CK/CKMB % Calc 3.5 % (<4) 07/08/21 00:14 Troponin I High Sens 19.8 ng/L (4.0-60.0) 07/08/21 00:14 B-Natriuretic Peptide 288 pg/mL (0-79) H 07/08/21 00:14 Total Protein 6.5 g/dL (6.4-8.2) 07/08/21 04:47 Albumin 2.6 g/dL (3.4-5.0) L 07/08/21 04:47 Globulin 3.9 g/dL (2.5-4.5) 07/08/21 04:47 Albumin/Globulin Ratio 0.7 Ratio (1.1-2.1) L 07/08/21 04:47 Specimen Type Clean catch urine 07/08/21 02:42 Urine Color Yellow (YELLOW) 07/08/21 02:42 Urine Appearance Clear (CLEAR) 07/08/21 02:42 Urine pH 6.0 (5.0 - 8.0) 07/08/21 02:42 Ur Specific [place] 1.015 (1.000-1.030) 07/08/21 02:42 Urine Protein 1+ (NEGATIVE) 07/08/21 02:42 Urine Glucose (UA) 4+ (NEGATIVE) 07/08/21 02:42 Urine Ketones Negative (NEGATIVE) 07/08/21 02:42 Urine Occult Blood Negative (NEGATIVE) 07/08/21 02:42 Urine Nitrite Negative (NEGATIVE) 07/08/21 02:42 Urine Bilirubin Negative (NEGATIVE) 07/08/21 02:42 Urine Urobilinogen Normal (NORMAL) 07/08/21 02:42 Ur Leukocyte Esterase Negative (NEGATIVE) 07/08/21 02:42 Urine RBC None seen /HPF (0-3) 07/08/21 02:42 Urine WBC None seen /HPF (0-5) 07/08/21 02:42 Ur Squamous Epith Cells Negative /HPF (NEGATIVE) 07/08/21 02:42 Urine Bacteria Trace /HPF (NEGATIVE) 07/08/21 02:42 Hyaline Casts Few /LPF (NEGATIVE) 07/08/21 02:42 Ur Culture Indicated? No/not indicated 07/08/21 02:42 SARS CoV-2 RNA Rapid RUBEN Positive (NEGATIVE) A 07/08/21 01:34 Plan (1) Leg wound, left: Status: Acute Qualifiers: Encounter type: initial encounter Qualified Code(s): S81.802A - Unspecified open wound, left lower leg, initial encounter (2) Dependent edema: Status: Acute (3) Cellulitis of foot, left: Status: Acute (4) COVID-19: Status: Acute (5) Diabetes mellitus, type 2: Status: Chronic Qualifiers: Diabetes mellitus complication status: with hyperglycemia Diabetes mellitus assisted insulin use: with assisted use Qualified Code(s): E11.65 - Type 2 diabetes mellitus with hyperglycemia; Z79.4 - shelter (current) use of insulin (6) History of cardiac arrhythmia: Status: Chronic (7) Hypertension: Status: Chronic Qualifiers: Hypertension type: primary hypertension Qualified Code(s): I10 - Essential (primary) hypertension (8) GERD (gastroesophageal reflux disease): Status: Chronic Qualifiers: Esophagitis presence: esophagitis presence not specified Qualified Code(s): K21.9 - Gastro-esophageal reflux disease without esophagitis (9) CHF (congestive heart failure): Status: Acute Qualifiers: Heart failure chronicity: acute on chronic Heart failure type: unspecified Qualified Code(s): I50.9 - Heart failure, unspecified (10) AICD (automatic cardioverter/defibrillator) present: Status: Acute
[2021-07-10] MEDS: NovoLIN R (or HumuLIN R) SUBCUT PRN ×2 (16:26→20:06)
[2021-07-10] MEDS: SNACK - Diabetic Appropriate PO SCH (20:00)
[2021-07-10] MEDS: ULTRAM PO PRN (20:04)
[2021-07-10] MEDS: LANTUS SC SCH (20:05)
[2021-07-10] MEDS: NEURONTIN CAP 300 MG PO SCH (20:05)
[2021-07-10] MEDS ORDERED: MORPHINE SULFATE INJ 2 MG INJ ONE (23:12)
[2021-07-10] MEDS: MORPHINE SULFATE INJ 2 MG INJ IVP PRN (23:19)
[2021-07-11 04:59] LABS: BASOPHILS # (AUTO) 0.1 X10^3/uL (0.0-0.1); BASOPHILS % (AUTO) 0.6 % (0.2-1.0); EOSINOPHILS % (AUTO) 0.5 % (0.9-2.9); LYMPHOCYTES # (AUTO) 1.3 X10^3/uL (1.3-2.9); LYMPHOCYTES % (AUTO) 13.9 % (21.0-51.0); MEAN CORPUSCULAR HEMOGLOBIN 27.9 pg (27.0-34.0); MEAN CORPUSCULAR HGB CONC 33.4 g/dL (33.0-35.0); MEAN CORPUSCULAR VOLUME 83.6 fL (80.0-100.0); MONOCYTES # (AUTO) 1.4 x10^3/uL (0.3-0.8); MONOCYTES % (AUTO) 14.6 % (0.0-13.0); NEUTROPHILS # (AUTO) 6.8 x10^3/uL (2.2-4.8); NEUTROPHILS % (AUTO) 70.4 % (42.0-75.0); WHITE BLOOD COUNT 9.6 X10^3/uL (3.6-10.0)
[2021-07-11 05:12] LABS: BLOOD UREA NITROGEN 20 mg/dL (7-18); CALCIUM 7.5 mg/dL (8.5-10.1); CARBON DIOXIDE 28.1 mmol/L (21-32); CHLORIDE 98 mmol/L (98-107); COR NA(FOR HYPERGLY) 133 mmol/L (136-145); CREATININE 0.71 mg/dL (0.70-1.30); SODIUM 133 mmol/L (136-145); eGFR NON BLACK RACES > 60 (>60)
[2021-07-11] MEDS: CLEOCIN 300 MG IV PREMIX 300 MG/50 ML BAG IV SCH ×3 (05:40→21:10)
[2021-07-11] MEDS: MORPHINE SULFATE INJ 2 MG INJ IVP PRN ×3 (05:40→20:11)
[2021-07-11] MEDS ORDERED: GLUCOPHAGE ONE ×2 (09:10→19:06)
[2021-07-11] MEDS ORDERED: ZOLOFT ONE (09:10)
[2021-07-11] MEDS: ALDACTONE TAB 25 MG PO SCH (09:14)
[2021-07-11] MEDS: GLUCOPHAGE PO SCH ×2 (09:14→20:09)
[2021-07-11] MEDS: ELIQUIS PO SCH ×2 (09:14→20:09)
[2021-07-11] MEDS: TOPROL XL PO SCH (09:15)
[2021-07-11] MEDS: ZOLOFT PO SCH (09:15)
[2021-07-11] MEDS: PriLOSEC PO SCH ×2 (09:15→20:10)
[2021-07-11] MEDS: LASIX IVP SCH ×2 (09:16→17:16)
[2021-07-11] MEDS: VIBRAMYCIN 100 MG in D5W 250 ML IV 250 ML IV SCH ×2 (09:20→20:10)
[2021-07-11] MEDS: NS 500 ML IV 500 ML IV SCH (10:42)
[2021-07-11] MEDS: KLONOPIN TAB 0.5 MG PO PRN ×2 (11:04→19:23)
--- NOTE | 2021-07-11 13:01 | PCM.PROG ---
Progress Note Progress Note for Day of Date of Exam: 07/11/21 Subjective Subjective: Patient seen at bedside, he has been doing well. He did have some more drainage in the left foot and leg yesterday. He was also complaining of more leg pain. He has been ambulating. His b/l leg swelling has improved significantly. Final Wound Cx pending. Labs reviewed Wound Cx x 1 reviewed Plan: dressing change today on both legs, follow final culture results. Continue IV antibiotics and lasix. Continue pain control. Ambulate as tolerated. Monitor I/Os, daily weights. Continue home medications. Continue lantus 30 units, SSI and metformin. Discussed with CM to arrange for home health for wound care. Monitor AM labs/imaging. Past Medical Family Social History Past Med/Fam/Surg Hx: No changes since H&P Allergies: Allergies Penicillins Allergy (Verified 06/24/21 15:06) Review of Systems ROS: No change since H&P Vital Signs and I&O's Vital Signs: Temperature 98.2 F Pulse Rate [Bilateral Radial] 103 Pulse Rate 101 Respiratory Rate 18 Blood Pressure [Left Arm] 98/70 Blood Pressure 110/74 O2 Sat by Pulse Oximetry 96 Intake and Output: Intake & Output 07/08/21 07/09/21 07/10/21 07/11/21 23:59 23:59 23:59 23:59 Intake Total 2790 / 2790 2541 / 2541 2791 / 2791 636 / 636 Output Total 2350 / 2350 2450 / 2450 3200 / 3200 300 / 300 Balance 440 / 440 91 / 91 -409 / -409 336 / 336 Physical Exam Oriented: Normal Eyes: Normal Ear: Normal Nose: Normal Throat: Normal Respiratory: Generalized and Diminished Cardiovascular: Normal and Edema (edema improved, mild erythema present ) Auscultation: Bowel Sounds: Normal Tenderness: Normal Skin: Wound (left foot flat blister noted with purulent drainage, mild surrounding erythema present. B/l leg dressing intact) Musculoskeletal: Normal Psychiatric: Normal Mood Description: Calm Affect: Normal Speech Pattern: Clear and Appropriate Laboratory and Diagnostics Result Diagrams: 07/11/21 04:10 07/11/21 04:10 Labs: 07/08/21 12:04 Leg - Left Wound Gram Stain - Final 07/08/21 12:04 Leg - Left Wound Culture - Preliminary 07/08/21 12:04 Foot - Left Wound Gram Stain - Final 07/08/21 12:04 Foot - Left Wound Culture - Preliminary Enterobacter Cloacae Laboratory WBC 9.6 X10^3/uL (3.6-10.0) 07/11/21 04:10 RBC 4.30 X10^6/uL (4.7-6.0) L 07/11/21 04:10 Hgb 12.0 g/dL (13.5-18.0) L 07/11/21 04:10 Hct 36.0 % (42.0-54.0) L 07/11/21 04:10 MCV 83.6 fL (80.0-100.0) 07/11/21 04:10 MCH 27.9 pg (27.0-34.0) 07/11/21 04:10 MCHC 33.4 g/dL (33.0-35.0) 07/11/21 04:10 RDW 14.0 % (11.6-16.5) 07/11/21 04:10 Plt Count 328 X10^3/uL (150.0-450.0) 07/11/21 04:10 MPV 9.0 fL (7.4-11.0) 07/11/21 04:10 Neut % (Auto) 70.4 % (42.0-75.0) 07/11/21 04:10 Lymph % (Auto) 13.9 % (21.0-51.0) L 07/11/21 04:10 [place] % (Auto) 14.6 % (0.0-13.0) H 07/11/21 04:10 Eos % (Auto) 0.5 % (0.9-2.9) L 07/11/21 04:10 Baso % (Auto) 0.6 % (0.2-1.0) 07/11/21 04:10 Neut # (Auto) 6.8 x10^3/uL (2.2-4.8) H 07/11/21 04:10 Lymph # (Auto) 1.3 X10^3/uL (1.3-2.9) 07/11/21 04:10 Hand # (Auto) 1.4 x10^3/uL (0.3-0.8) H 07/11/21 04:10 Eos # (Auto) 0.0 x10^3/uL (0.0-0.2) 07/11/21 04:10 Baso # (Auto) 0.1 X10^3/uL (0.0-0.1) 07/11/21 04:10 Absolute Nucleated RBC 0.0 /100WBC 07/11/21 04:10 Sodium 133 mmol/L (136-145) L 07/11/21 04:10 Corrected Sodium 133 mmol/L (136-145) L 07/11/21 04:10 Potassium 3.6 mmol/L (3.5-5.1) 07/11/21 04:10 Chloride 98 mmol/L (98-107) 07/11/21 04:10 Carbon Dioxide 28.1 mmol/L (21-32) 07/11/21 04:10 BUN 20 mg/dL (7-18) H 07/11/21 04:10 Creatinine 0.71 mg/dL (0.70-1.30) 07/11/21 04:10 Est GFR (MDRD) Af Amer > 60 (>60) 07/11/21 04:10 Est GFR (MDRD) Non-Af > 60 (>60) 07/11/21 04:10 Glucose 120 mg/dL (65-99) H 07/11/21 04:10 POC Glucose (mg/dL) 148 mg/dL (65-99) H 07/11/21 11:40 Calcium 7.5 mg/dL (8.5-10.1) L 07/11/21 04:10 Corrected Calcium 8.8 mg/dL (8.5-10.1) 07/08/21 04:47 Total Bilirubin 0.50 mg/dL (0.2-1.0) 07/08/21 04:47 AST 41 Units/L (15-37) H 07/08/21 04:47 ALT 78 Units/L (12-78) 07/08/21 04:47 Alkaline Phosphatase 281 Units/L (46-116) H 07/08/21 04:47 Creatine Kinase 40 Units/L (39-308) 07/08/21 00:14 CK-MB (CK-2) 1.4 ng/mL (0-4.0) 07/08/21 00:14 CK/CKMB % Calc 3.5 % (<4) 07/08/21 00:14 Troponin I High Sens 19.8 ng/L (4.0-60.0) 07/08/21 00:14 B-Natriuretic Peptide 288 pg/mL (0-79) H 07/08/21 00:14 Total Protein 6.5 g/dL (6.4-8.2) 07/08/21 04:47 Albumin 2.6 g/dL (3.4-5.0) L 07/08/21 04:47 Globulin 3.9 g/dL (2.5-4.5) 07/08/21 04:47 Albumin/Globulin Ratio 0.7 Ratio (1.1-2.1) L 07/08/21 04:47 Specimen Type Clean catch urine 07/08/21 02:42 Urine Color Yellow (YELLOW) 07/08/21 02:42 Urine Appearance Clear (CLEAR) 07/08/21 02:42 Urine pH 6.0 (5.0 - 8.0) 07/08/21 02:42 Ur Specific [place] 1.015 (1.000-1.030) 07/08/21 02:42 Urine Protein 1+ (NEGATIVE) 07/08/21 02:42 Urine Glucose (UA) 4+ (NEGATIVE) 07/08/21 02:42 Urine Ketones Negative (NEGATIVE) 07/08/21 02:42 Urine Occult Blood Negative (NEGATIVE) 07/08/21 02:42 Urine Nitrite Negative (NEGATIVE) 07/08/21 02:42 Urine Bilirubin Negative (NEGATIVE) 07/08/21 02:42 Urine Urobilinogen Normal (NORMAL) 07/08/21 02:42 Ur Leukocyte Esterase Negative (NEGATIVE) 07/08/21 02:42 Urine RBC None seen /HPF (0-3) 07/08/21 02:42 Urine WBC None seen /HPF (0-5) 07/08/21 02:42 Ur Squamous Epith Cells Negative /HPF (NEGATIVE) 07/08/21 02:42 Urine Bacteria Trace /HPF (NEGATIVE) 07/08/21 02:42 Hyaline Casts Few /LPF (NEGATIVE) 07/08/21 02:42 Ur Culture Indicated? No/not indicated 07/08/21 02:42 SARS CoV-2 RNA Rapid RUBEN Positive (NEGATIVE) A 07/08/21 01:34 Plan (1) Leg wound, left: Status: Acute Qualifiers: Encounter type: initial encounter Qualified Code(s): S81.802A - Unspecified open wound, left lower leg, initial encounter (2) Dependent edema: Status: Acute (3) Cellulitis of foot, left: Status: Acute (4) COVID-19: Status: Acute (5) Diabetes mellitus, type 2: Status: Chronic Qualifiers: Diabetes mellitus complication status: with hyperglycemia Diabetes mellitus long wall mining machine helper insulin use: with long wall mining machine helper use Qualified Code(s): E11.65 - Type 2 diabetes mellitus with hyperglycemia; Z79.4 - exterminator helper (current) use of insulin (6) History of cardiac arrhythmia: Status: Chronic (7) Hypertension: Status: Chronic Qualifiers: Hypertension type: primary hypertension Qualified Code(s): I10 - Essential (primary) hypertension (8) GERD (gastroesophageal reflux disease): Status: Chronic Qualifiers: Esophagitis presence: esophagitis presence not specified Qualified Code(s): K21.9 - Gastro-esophageal reflux disease without esophagitis (9) CHF (congestive heart failure): Status: Acute Qualifiers: Heart failure chronicity: acute on chronic Heart failure type: unspecified Qualified Code(s): I50.9 - Heart failure, unspecified (10) AICD (automatic cardioverter/defibrillator) present: Status: Acute
[2021-07-11] MEDS: NovoLIN R (or HumuLIN R) SUBCUT PRN ×2 (17:16→20:11)
[2021-07-11] MEDS: ULTRAM PO PRN (17:39)
[2021-07-11] MEDS ORDERED: KLOR-CON PO PRN (19:34)
[2021-07-11] MEDS ORDERED: POTASSIUM CHL 40 MEQ/NS 0.45% 500 ML IV PRN (19:34)
[2021-07-11] MEDS ORDERED: MICRO K EXTEN CAP 10 MEQ PO PRN (19:34)
[2021-07-11] MEDS ORDERED: POTASSIUM CHLORIDE LIQ 20 MEQ UDC PO PRN (19:34)
[2021-07-11] MEDS ORDERED: K-RIDER 10 MEQ/NS 100 ML 10 MEQ/100 ML BAG IV PRN (19:34)
[2021-07-11] MEDS ORDERED: K-DUR TAB 20 MEQ PO PRN (19:34)
[2021-07-11] MEDS ORDERED: POTASSIUM CHL 60 MEQ/NS 0.45% 500 ML IV PRN (19:34)
[2021-07-11] MEDS ORDERED: MAGNESIUM SULFATE 1 GRAM/100 mL PREMIX 1 G/100 ML BAG IV PRN (19:34)
[2021-07-11] MEDS: SNACK - Diabetic Appropriate PO SCH (20:09)
[2021-07-11] MEDS: LANTUS SC SCH (20:09)
[2021-07-11] MEDS: NEURONTIN CAP 300 MG PO SCH (20:10)
[2021-07-12] MEDS: CLEOCIN 300 MG IV PREMIX 300 MG/50 ML BAG IV SCH ×2 (05:18→13:41)
[2021-07-12 05:19] LABS: BASOPHILS # (AUTO) 0.1 X10^3/uL (0.0-0.1); BASOPHILS % (AUTO) 0.8 % (0.2-1.0); EOSINOPHILS # (AUTO) 0.1 x10^3/uL (0.0-0.2); EOSINOPHILS % (AUTO) 0.7 % (0.9-2.9); HEMATOCRIT 37.2 % (42.0-54.0); HEMOGLOBIN 12.4 g/dL (13.5-18.0); LYMPHOCYTES # (AUTO) 1.2 X10^3/uL (1.3-2.9); LYMPHOCYTES % (AUTO) 14.8 % (21.0-51.0); MEAN CORPUSCULAR HEMOGLOBIN 28.1 pg (27.0-34.0); MEAN CORPUSCULAR HGB CONC 33.3 g/dL (33.0-35.0); MEAN CORPUSCULAR VOLUME 84.3 fL (80.0-100.0); MEAN PLATELET VOLUME 9.1 fL (7.4-11.0); MONOCYTES # (AUTO) 1.1 x10^3/uL (0.3-0.8); NEUTROPHILS # (AUTO) 5.7 x10^3/uL (2.2-4.8); NEUTROPHILS % (AUTO) 69.7 % (42.0-75.0); RED BLOOD COUNT 4.41 X10^6/uL (4.7-6.0); RED CELL DISTRIBUTION WIDTH 14.2 % (11.6-16.5); WHITE BLOOD COUNT 8.2 X10^3/uL (3.6-10.0)
[2021-07-12 05:29] LABS: BLOOD UREA NITROGEN 23 mg/dL (7-18); CALCIUM 7.6 mg/dL (8.5-10.1); CARBON DIOXIDE 31.3 mmol/L (21-32); CHLORIDE 97 mmol/L (98-107); COR NA(FOR HYPERGLY) 135 mmol/L (136-145); CREATININE 0.92 mg/dL (0.70-1.30); SODIUM 134 mmol/L (136-145); eGFR NON BLACK RACES > 60 (>60)
[2021-07-12] MEDS: ALDACTONE TAB 25 MG PO SCH (08:01)
[2021-07-12] MEDS ORDERED: ZOLOFT ONE (08:06)
[2021-07-12] MEDS ORDERED: GLUCOPHAGE ONE ×2 (08:06→20:10)
[2021-07-12] MEDS ORDERED: VIBRAMYCIN IV ONE (08:07)
[2021-07-12] MEDS: GLUCOPHAGE PO SCH ×2 (08:10→20:17)
[2021-07-12] MEDS: ELIQUIS PO SCH ×2 (08:10→20:16)
[2021-07-12] MEDS: TOPROL XL PO SCH ×2 (08:11→09:25)
[2021-07-12] MEDS: LASIX IVP SCH ×2 (08:11→16:36)
[2021-07-12] MEDS: PriLOSEC PO SCH ×2 (08:11→20:18)
[2021-07-12] MEDS: ZOLOFT PO SCH (08:11)
[2021-07-12] MEDS: VIBRAMYCIN 100 MG in D5W 250 ML IV 250 ML IV SCH (08:11)
[2021-07-12] MEDS: KLONOPIN TAB 0.5 MG PO PRN ×3 (08:12→20:19)
[2021-07-12] MEDS: ULTRAM PO PRN ×2 (08:12→20:19)
[2021-07-12] MEDS: NS 500 ML IV 500 ML IV SCH (11:00)
[2021-07-12] MEDS: NovoLIN R (or HumuLIN R) SUBCUT PRN ×3 (12:48→20:19)
[2021-07-12] MEDS: MORPHINE SULFATE INJ 2 MG INJ IVP PRN (14:43)
--- NOTE | 2021-07-12 19:20 | PCM.PROG ---
Progress Note - Progress Note for Day of Date of Exam: 07/12/21 - Subjective Subjective: IS A 46 YEAR OLD PATIENT OF . HE WAS ADMITTED FOR TREATMENT OF LEFT FOOT CELLULITIS, DEPENDENT EDEMA, COVID-19. PMH OF CHF, DM II, HTN, HLD, AND ANXIETY. HE FIRST TESTED POSITIVE FOR COVID-19 ON 06/24/21. HE WAS TREATED FOR COVID PNEUMONIA AT THAT TIME. HE PRESENTED WITH MULTIPLE OPEN WOUNDS AND BLISTERS WITH DRAINAGE ON 07/08/21. HE DOES NOT CURRENTLY HAVE ANY RESPIRATORY SYMPTOMS OTHER THAN OCCASIONAL SHORTNESS OF BREATH ON EXERTION. TODAY, HE IS ALERT AND ORIENTED, SITTING UP IN CHAIR ON MORNING ROUNDS. HE DENIES CURRENT COMPLAINTS. HE HAD AN UNEVENTFUL NIGHT. ON EXAMINATION, HEART IS REGULAR IN RATE AND RHYTHM. BILATERAL LUNGS NOTED WITH DIMINISHED LUNG SOUNDS TH ROUGHOUT. ABDOMEN IS ROUND, SOFT, AND NON-TENDER WITH NORMAL BOWEL SOUNDS NOTED IN ALL QUADRANTS. LEFT LEG AND LEFT FOOT WOUNDS ARE DRESSED. 1+ PITTING EDEMA NOTED TO BILATERAL LOWER EXTREMITIES. ERYTHEMA NOTED TO BILATERAL LOWER EXTREMITIES. HIS VITALS THIS MORNING ARE: 98.2-93-18-96%-93/70. LABS WERE OBTAINED. ABNORMAL LAB VALUES INCLUDE THE FOLLOWING: RBC 4.41, HGB 12.4, HCT 37.2, SODIUM 134, CHORIDE 97, BUN 23, GLUCOSE 156, CALCIUM 7.6, CRP 15.40, BNP 501. WOUND CULTURES REVEALED GROWTH OF ENTEROBACTER CLOACE AND STAPHYLOCOCCUS HAEMOLYTICUS. HE IS CURRENTLY RECEIVING IV FLUIDS, CLINDAMYCIN IV, DOXYCYCLINE IV, POTASSIUM AND MAGNESIUM PROTOCOLS, OTBS ACHS, HUMULIN R SLIDING SCALE, LANTUS 30 UNITS SC HS, LASIX 40MG IV BID, MORPHINE 1-2MG IV Q4H PRN, AND HIS HOME MEDICATIONS WERE RESUMED. TODAY, WE WILL DISCONTINUE THE CLINDAMYCIN AND DOXY. WE WILL ADD CIPRO 400MG IV Q12H. OTHERWISE, WE PLAN TO FOLLOW UP WITH AM LABS AND CONTINUE TO MONITOR. TIME SPENT ON CLINICAL ASSESSMENT, REVIEWING LABS AND IMAGING, DECISION MAKING, AND DOCUMENTATION WAS GREATER THAN 45 MINUTES. - Past Medical Family Social History Past Med/Fam/Surg Hx: No changes since H&P Allergies: Allergies Penicillins Allergy (Verified 06/24/21 15:06) - Review of Systems ROS: No change since H&P - Vital Signs and I&O's Vital Signs: Temperature 97.7 F Pulse Rate [Bilateral Radial] 103 Pulse Rate 93 Respiratory Rate 18 Blood Pressure [Left Arm] 98/70 Blood Pressure 116/80 O2 Sat by Pulse Oximetry 90 Intake and Output: Intake & Output 07/10/21 07/11/21 07/12/21 07/13/21 11:59 11:59 11:59 11:59 Intake Total 2814 / 2814 2854 / 2854 2369 / 2369 870 / 870 Output Total 2200 / 2200 3300 / 3300 2450 / 2450 1100 / 1100 Balance 614 / 614 -446 / -446 -81 / -81 -230 / -230 - Physical Exam Oriented: Normal Eyes: Normal Ear: Normal Nose: Normal Throat: Normal Respiratory: Generalized, Diminished Cardiovascular: Normal, Edema (edema improved, mild erythema present) Auscultation: Bowel Sounds: Normal Palpation: Normal Tenderness: Normal Skin: Wound (left foot flat blister noted with purulent drainage, mild malhotra rrounding erythema present. B/l leg dressing intact) Musculoskeletal: Normal Psychiatric: Normal Mood Description: Calm Affect: Normal Speech Pattern: Clear, Appropriate - Laboratory and Diagnostics Result Diagrams: 07/13/21 04:35 07/13/21 04:35 Labs: 07/08/21 12:04 Foot - Left Wound Gram Stain - Final 07/08/21 12:04 Foot - Left Wound Culture - Final Enterobacter Cloacae Staphylococcus Haemolyticus 07/08/21 12:04 Leg - Left Wound Gram Stain - Final 07/08/21 12:04 Leg - Left Wound Culture - Final Enterobacter Cloacae Staphylococcus Haemolyticus Laboratory WBC 8.2 X10^3/uL (3.6-10.0) 07/12/21 04:31 RBC 4.41 X10^6/uL (4.7-6.0) L 07/12/21 04:31 Hgb 12.4 g/dL (13.5-18.0) L 07/12/21 04:31 Hct 37.2 % (42.0-54.0) L 07/12/21 04:31 MCV 84.3 fL (80.0-100.0) 07/12/21 04:31 MCH 28.1 pg (27.0-34.0) 07/12/21 04:31 MCHC 33.3 g/dL (33.0-35.0) 07/12/21 04:31 RDW 14.2 % (11.6-16.5) 07/12/21 04:31 Plt Count 322 X10^3/uL (150.0-450.0) 07/12/21 04:31 MPV 9.1 fL (7.4-11.0) 07/12/21 04:31 Neut % (Auto) 69.7 % (42.0-75.0) 07/12/21 04:31 Lymph % (Auto) 14.8 % (21.0-51.0) L 07/12/21 04:31 [place] % (Auto) 14.0 % (0.0-13.0) H 07/12/21 04:31 Eos % (Auto) 0.7 % (0.9-2.9) L 07/12/21 04:31 Baso % (Auto) 0.8 % (0.2-1.0) 07/12/21 04:31 Neut # (Auto) 5.7 x10^3/uL (2.2-4.8) H 07/12/21 04:31 Lymph # (Auto) 1.2 X10^3/uL (1.3-2.9) L 07/12/21 04:31 [place] # (Auto) 1.1 x10^3/uL (0.3-0.8) H 07/12/21 04:31 Eos # (Auto) 0.1 x10^3/uL (0.0-0.2) 07/12/21 04:31 Baso # (Auto) 0.1 X10^3/uL (0.0-0.1) 07/12/21 04:31 Absolute Nucleated RBC 0.1 /100WBC 07/12/21 04:31 Sodium 134 mmol/L (136-145) L 07/12/21 04:31 Corrected Sodium 135 mmol/L (136-145) L 07/12/21 04:31 Potassium 3.9 mmol/L (3.5-5.1) 07/12/21 04:31 Chloride 97 mmol/L (98-107) L 07/12/21 04:31 Carbon Dioxide 31.3 mmol/L (21-32) 07/12/21 04:31 BUN 23 mg/dL (7-18) H 07/12/21 04:31 Creatinine 0.92 mg/dL (0.70-1.30) 07/12/21 04:31 Est GFR (MDRD) Af Amer > 60 (>60) 07/12/21 04:31 Est GFR (MDRD) Non-Af > 60 (>60) 07/12/21 04:31 Glucose 156 mg/dL (65-99) H 07/12/21 04:31 POC Glucose (mg/dL) 198 mg/dL (65-99) H 07/12/21 16:33 Calcium 7.6 mg/dL (8.5-10.1) L 07/12/21 04:31 Corrected Calcium 8.8 mg/dL (8.5-10.1) 07/08/21 04:47 Total Bilirubin 0.50 mg/dL (0.2-1.0) 07/08/21 04:47 AST 41 Units/L (15-37) H 07/08/21 04:47 ALT 78 Units/L (12-78) 07/08/21 04:47 Alkaline Phosphatase 281 Units/L (46-116) H 07/08/21 04:47 Creatine Kinase 40 Units/L (39-308) 07/08/21 00:14 CK-MB (CK-2) 1.4 ng/mL (0-4.0) 07/08/21 00:14 CK/CKMB % Calc 3.5 % (<4) 07/08/21 00:14 Troponin I High Sens 19.8 ng/L (4.0-60.0) 07/08/21 00:14 C-Reactive Protein 15.40 mg/L (0-3.0) H 07/12/21 04:31 B-Natriuretic Peptide 501 pg/mL (0-79) H* 07/12/21 04:31 Total Protein 6.5 g/dL (6.4-8.2) 07/08/21 04:47 Albumin 2.6 g/dL (3.4-5.0) L 07/08/21 04:47 Globulin 3.9 g/dL (2.5-4.5) 07/08/21 04:47 Albumin/Globulin Ratio 0.7 Ratio (1.1-2.1) L 07/08/21 04:47 Specimen Type Clean catch urine 07/08/21 02:42 Urine Color Yellow (YELLOW) 07/08/21 02:42 Urine Appearance Clear (CLEAR) 07/08/21 02:42 Urine pH 6.0 (5.0 - 8.0) 07/08/21 02:42 Ur Specific [place] 1.015 (1.000-1.030) 07/08/21 02:42 Urine Protein 1+ (NEGATIVE) 07/08/21 02:42 Urine Glucose (UA) 4+ (NEGATIVE) 07/08/21 02:42 Urine Ketones Negative (NEGATIVE) 07/08/21 02:42 Urine Occult Blood Negative (NEGATIVE) 07/08/21 02:42 Urine Nitrite Negative (NEGATIVE) 07/08/21 02:42 Urine Bilirubin Negative (NEGATIVE) 07/08/21 02:42 Urine Urobilinogen Normal (NORMAL) 07/08/21 02:42 Ur Leukocyte Esterase Negative (NEGATIVE) 07/08/21 02:42 Urine RBC None seen /HPF (0-3) 07/08/21 02:42 Urine WBC None seen /HPF (0-5) 07/08/21 02:42 Ur Squamous Epith Cells Negative /HPF (NEGATIVE) 07/08/21 02:42 Urine Bacteria Trace /HPF (NEGATIVE) 07/08/21 02:42 Hyaline Casts Few /LPF (NEGATIVE) 07/08/21 02:42 Ur Culture Indicated? No/not indicated 07/08/21 02:42 SARS CoV-2 RNA Rapid RUBEN Positive (NEGATIVE) A 07/08/21 01:34 - Plan (1) Cellulitis of foot, left Status: Acute (2) Leg wound, left Status: Acute Qualifiers: Encounter type: initial encounter Qualified Code(s): S81.802A - Unspecified open wound, left lower leg, initial encounter (3) COVID-19 Status: Acute (4) Diabetes mellitus, type 2 Status: Chronic Qualifiers: Diabetes mellitus usp insulin use: with usp use Diabetes mellitus complication status: with hyperglycemia Qualified Code(s): E11.65 - Type 2 diabetes mellitus with hyperglycemia; Z79.4 - petroleum terminal plant operator (current) use of insulin (5) GERD (gastroesophageal reflux disease) Status: Chronic Qualifiers: Esophagitis presence: esophagitis presence not specified Qualified Code(s): K21.9 - Gastro-esophageal reflux disease without esophagitis (6) Hypertension Status: Chronic Qualifiers: Hypertension type: primary hypertension Qualified Code(s): I10 - Essential (primary) hypertension (7) AICD (automatic cardioverter/defibrillator) present Status: Chronic (8) CHF (congestive heart failure) Status: Chronic Qualifiers: Heart failure type: unspecified Heart failure chronicity: acute on chronic Qualified Code(s): I50.9 - Heart failure, unspecified (9) History of cardiac arrhythmia Status: Chronic
[2021-07-12] MEDS: SNACK - Diabetic Appropriate PO SCH (20:16)
[2021-07-12] MEDS: CIPRO IV 400 MG PREMIX* 400 MG/200 ML IV.SOLN. IV SCH (20:16)
[2021-07-12] MEDS: LANTUS SC SCH (20:17)
[2021-07-12] MEDS: NEURONTIN CAP 300 MG PO SCH (20:18)
[2021-07-13] MEDS: KLONOPIN TAB 0.5 MG PO PRN ×3 (04:41→20:24)
[2021-07-13 05:02] LABS: BASOPHILS # (AUTO) 0.1 X10^3/uL (0.0-0.1); BASOPHILS % (AUTO) 0.7 % (0.2-1.0); EOSINOPHILS # (AUTO) 0.1 x10^3/uL (0.0-0.2); HEMATOCRIT 34.5 % (42.0-54.0); HEMOGLOBIN 11.6 g/dL (13.5-18.0); LYMPHOCYTES # (AUTO) 1.5 X10^3/uL (1.3-2.9); LYMPHOCYTES % (AUTO) 16.2 % (21.0-51.0); MEAN CORPUSCULAR HEMOGLOBIN 28.4 pg (27.0-34.0); MEAN CORPUSCULAR HGB CONC 33.8 g/dL (33.0-35.0); MEAN CORPUSCULAR VOLUME 84.2 fL (80.0-100.0); MEAN PLATELET VOLUME 8.9 fL (7.4-11.0); MONOCYTES # (AUTO) 1.5 x10^3/uL (0.3-0.8); MONOCYTES % (AUTO) 16.2 % (0.0-13.0); NEUTROPHILS % (AUTO) 65.9 % (42.0-75.0); RED BLOOD COUNT 4.09 X10^6/uL (4.7-6.0); RED CELL DISTRIBUTION WIDTH 14.3 % (11.6-16.5); WHITE BLOOD COUNT 9.1 X10^3/uL (3.6-10.0)
[2021-07-13 05:24] LABS: BLOOD UREA NITROGEN 22 mg/dL (7-18); CALCIUM 7.5 mg/dL (8.5-10.1); CARBON DIOXIDE 27.7 mmol/L (21-32); CHLORIDE 97 mmol/L (98-107); COR NA(FOR HYPERGLY) 133 mmol/L (136-145); CREATININE 0.78 mg/dL (0.70-1.30); SODIUM 132 mmol/L (136-145); eGFR NON BLACK RACES > 60 (>60)
[2021-07-13] MEDS ORDERED: GLUCOPHAGE ONE ×2 (08:29→20:16)
[2021-07-13] MEDS ORDERED: ZOLOFT ONE (08:30)
[2021-07-13] MEDS: ALDACTONE TAB 25 MG PO SCH (08:32)
[2021-07-13] MEDS: GLUCOPHAGE PO SCH ×2 (08:33→20:21)
[2021-07-13] MEDS: CIPRO IV 400 MG PREMIX* 400 MG/200 ML IV.SOLN. IV SCH ×2 (08:33→20:20)
[2021-07-13] MEDS: ELIQUIS PO SCH ×2 (08:33→20:21)
[2021-07-13] MEDS: LASIX IVP SCH ×2 (08:35→17:33)
[2021-07-13] MEDS: PriLOSEC PO SCH ×2 (08:35→20:24)
[2021-07-13] MEDS: TOPROL XL PO SCH (08:35)
[2021-07-13] MEDS: ZOLOFT PO SCH (08:35)
--- NOTE | 2021-07-13 08:49 | PCM.PROG ---
Progress Note - Progress Note for Day of Date of Exam: 07/13/21 - Subjective Subjective: IS A 46 YEAR OLD PATIENT OF . HE WAS ADMITTED FOR TREATMENT OF LEFT FOOT CELLULITIS, DEPENDENT EDEMA, COVID-19. PMH OF CHF, DM II, HTN, HLD, AND ANXIETY. HE FIRST TESTED POSITIVE FOR COVID-19 ON 06/24/21. HE WAS TREATED FOR COVID PNEUMONIA AT THAT TIME. HE PRESENTED WITH MULTIPLE OPEN WOUNDS AND BLISTERS WITH DRAINAGE ON 07/08/21. HE DOES NOT CURRENTLY HAVE ANY RESPIRATORY SYMPTOMS OTHER THAN OCCASIONAL SHORTNESS OF BREATH ON EXERTION. TODAY, HE IS ALERT AND ORIENTED, SITTING UP IN CHAIR ON MORNING ROUNDS. HE DENIES CURRENT COMPLAINTS. HE HAD AN UNEVENTFUL NIGHT. ON EXAMINATION, HEART IS REGULAR IN RATE AND RHYTHM. BILATERAL LUNGS NOTED WITH DIMINISHED LUNG SOUNDS THROUGHOUT. ABDOMEN IS ROUND, SOFT, AND NON-TENDER WITH NORMAL BOWEL SOUNDS NOTED IN ALL QUADRANTS. LEFT LEG AND LEFT FOOT WOUNDS ARE DRESSED. MILD EDEMA NOTED TO BILATERAL LOWER EXTREMITIES. ERYTHEMA NOTED TO BILATERAL LOWER EXTREMITIES, IMPROVING. HIS VITALS THIS MORNING ARE: 97.9-90-18-93%-90/68. LABS WERE OBTAINED. ABNORMAL LAB VALUES INCLUDE THE FOLLOWING: RBC 4.09, HGB 11.6, HCT 34.5, SODIUM 132, CHLORIDE 97, BUN 22, GLUCOSE 128, CALCIUM 7.5, CRP 36.40, BNP 580. WOUND CULTURES REVEALED GROWTH OF ENTEROBACTER CLOACE AND STAPHYLOCOCCUS HAEMOLYTICUS. HE IS CURRENTLY RECEIVING IV FLUIDS, CIPRO 400MG IV Q12H, POTASSIUM AND MAGNESIUM PROTOCOLS, OTBS ACHS, HUMULIN R SLIDING SCALE, LANTUS 30 UNITS SC HS, LASIX 40MG IV BID, MORPHINE 1-2MG IV Q4H PRN, AND HIS HOME MEDICATIONS WERE RESUMED. WE WILL CONTINUE WITH CURRENT PLAN OF CARE TODAY. OTHERWISE, WE PLAN TO FOLLOW UP WITH AM LABS AND CONTINUE TO MONITOR. TIME SPENT ON CLINICAL ASSESSMENT, REVIEWING LABS AND IMAGING, DECISION MAKING, AND DO CUMENTATION WAS GREATER THAN 45 MINUTES. - Past Medical Family Social History Past Med/Fam/Surg Hx: No changes since H&P Allergies: Allergies Penicillins Allergy (Verified 06/24/21 15:06) - Review of Systems ROS: No change since H&P - Vital Signs and I&O's Vital Signs: Temperature 97.9 F Pulse Rate [Bilateral Radial] 103 Pulse Rate 97 Respiratory Rate 17 Blood Pressure [Left Arm] 98/70 Blood Pressure 108/79 O2 Sat by Pulse Oximetry 96 Intake and Output: Intake & Output 07/10/21 07/11/21 07/12/21 07/13/21 11:59 11:59 11:59 11:59 Intake Total 2814 / 2814 2854 / 2854 2369 / 2369 1450 / 1450 Output Total 2200 / 2200 3300 / 3300 2450 / 2450 1675 / 1675 Balance 614 / 614 -446 / -446 -81 / -81 -225 / -225 - Physical Exam Oriented: Normal Eyes: Normal Ear: Normal Nose: Normal Throat: Normal Respiratory: Generalized, Diminished Cardiovascular: Normal, Edema (edema improved, mild erythema present) Auscultation: Bowel Sounds: Normal Tenderness: Normal Skin: Wound (left foot flat blister noted with purulent drainage, mild surrounding erythema present. B/l leg dressing intact) Musculoskeletal: Normal Psychiatric: Normal Mood Description: Calm Affect: Normal Speech Pattern: Clear, Appropriate - Laboratory and Diagnostics Result Diagrams: 07/13/21 04:35 07/13/21 04:35 Labs: 07/08/21 12:04 Foot - Left Wound Gram Stain - Final 07/08/21 12:04 Foot - Left Wound Culture - Final Enterobacter Cloacae Staphylococcus Haemolyticus 07/08/21 12:04 Leg - Left Wound Gram Stain - Final 07/08/21 12:04 Leg - Left Wound Culture - Final Enterobacter Cloacae Staphylococcus Haemolyticus Laboratory WBC 9.1 X10^3/uL (3.6-10.0) 07/13/21 04:35 RBC 4.09 X10^6/uL (4.7-6.0) L 07/13/21 04:35 Hgb 11.6 g/dL (13.5-18.0) L 07/13/21 04:35 Hct 34.5 % (42.0-54.0) L 07/13/21 04:35 MCV 84.2 fL (80.0-100.0) 07/13/21 04:35 MCH 28.4 pg (27.0-34.0) 07/13/21 04:35 MCHC 33.8 g/dL (33.0-35.0) 07/13/21 04:35 RDW 14.3 % (11.6-16.5) 07/13/21 04:35 Plt Count 247 X10^3/uL (150.0-450.0) 07/13/21 04:35 MPV 8.9 fL (7.4-11.0) 07/13/21 04:35 Neut % (Auto) 65.9 % (42.0-75.0) 07/13/21 04:35 Lymph % (Auto) 16.2 % (21.0-51.0) L 07/13/21 04:35 Eddy % (Auto) 16.2 % (0.0-13.0) H 07/13/21 04:35 Eos % (Auto) 1.0 % (0.9-2.9) 07/13/21 04:35 Baso % (Auto) 0.7 % (0.2-1.0) 07/13/21 04:35 Neut # (Auto) 6.0 x10^3/uL (2.2-4.8) H 07/13/21 04:35 Lymph # (Auto) 1.5 X10^3/uL (1.3-2.9) 07/13/21 04:35 Eddy # (Auto) 1.5 x10^3/uL (0.3-0.8) H 07/13/21 04:35 Eos # (Auto) 0.1 x10^3/uL (0.0-0.2) 07/13/21 04:35 Baso # (Auto) 0.1 X10^3/uL (0.0-0.1) 07/13/21 04:35 Absolute Nucleated RBC 0.1 /100WBC 07/13/21 04:35 Sodium 132 mmol/L (136-145) L 07/13/21 04:35 Corrected Sodium 133 mmol/L (136-145) L 07/13/21 04:35 Potassium 3.7 mmol/L (3.5-5.1) 07/13/21 04:35 Chloride 97 mmol/L (98-107) L 07/13/21 04:35 Carbon Dioxide 27.7 mmol/L (21-32) 07/13/21 04:35 BUN 22 mg/dL (7-18) H 07/13/21 04:35 Creatinine 0.78 mg/dL (0.70-1.30) 07/13/21 04:35 Est GFR (MDRD) Af Amer > 60 (>60) 07/13/21 04:35 Est GFR (MDRD) Non-Af > 60 (>60) 07/13/21 04:35 Glucose 128 mg/dL (65-99) H 07/13/21 04:35 POC Glucose (mg/dL) 234 mg/dL (65-99) H 07/12/21 19:23 Calcium 7.5 mg/dL (8.5-10.1) L 07/13/21 04:35 Corrected Calcium 8.8 mg/dL (8.5-10.1) 07/08/21 04:47 Total Bilirubin 0.50 mg/dL (0.2-1.0) 07/08/21 04:47 AST 41 Units/L (15-37) H 07/08/21 04:47 ALT 78 Units/L (12-78) 07/08/21 04:47 Alkaline Phosphatase 281 Units/L (46-116) H 07/08/21 04:47 Creatine Kinase 40 Units/L (39-308) 07/08/21 00:14 CK-MB (CK-2) 1.4 ng/mL (0-4.0) 07/08/21 00:14 CK/CKMB % Calc 3.5 % (<4) 07/08/21 00:14 Troponin I High Sens 19.8 ng/L (4.0-60.0) 07/08/21 00:14 C-Reactive Protein 36.40 mg/L (0-3.0) H 07/13/21 04:35 B-Natriuretic Peptide 580 pg/mL (0-79) H* 07/13/21 04:35 Total Protein 6.5 g/dL (6.4-8.2) 07/08/21 04:47 Albumin 2.6 g/dL (3.4-5.0) L 07/08/21 04:47 Globulin 3.9 g/dL (2.5-4.5) 07/08/21 04:47 Albumin/Globulin Ratio 0.7 Ratio (1.1-2.1) L 07/08/21 04:47 Specimen Type Clean catch urine 07/08/21 02:42 Urine Color Yellow (YELLOW) 07/08/21 02:42 Urine Appearance Clear (CLEAR) 07/08/21 02:42 Urine pH 6.0 (5.0 - 8.0) 07/08/21 02:42 Ur Specific [place] 1.015 (1.000-1.030) 07/08/21 02:42 Urine Protein 1+ (NEGATIVE) 07/08/21 02:42 Urine Glucose (UA) 4+ (NEGATIVE) 07/08/21 02:42 Urine Ketones Negative (NEGATIVE) 07/08/21 02:42 Urine Occult Blood Negative (NEGATIVE) 07/08/21 02:42 Urine Nitrite Negative (NEGATIVE) 07/08/21 02:42 Urine Bilirubin Negative (NEGATIVE) 07/08/21 02:42 Urine Urobilinogen Normal (NORMAL) 07/08/21 02:42 Ur Leukocyte Esterase Negative (NEGATIVE) 07/08/21 02:42 Urine RBC None seen /HPF (0-3) 07/08/21 02:42 Urine WBC None seen /HPF (0-5) 07/08/21 02:42 Ur Squamous Epith Cells Negative /HPF (NEGATIVE) 07/08/21 02:42 Urine Bacteria Trace /HPF (NEGATIVE) 07/08/21 02:42 Hyaline Casts Few /LPF (NEGATIVE) 07/08/21 02:42 Ur Culture Indicated? No/not indicated 07/08/21 02:42 SARS CoV-2 RNA Rapid RUBEN Positive (NEGATIVE) A 07/08/21 01:34 - Plan (1) Cellulitis of foot, left Status: Acute (2) Leg wound, left Status: Acute Qualifiers: Encounter type: initial encounter Qualified Code(s): S81.802A - Unspecified open wound, left lower leg, initial encounter (3) COVID-19 Status: Acute (4) Diabetes mellitus, type 2 Status: Chronic Qualifiers: Diabetes mellitus nursing home insulin use: with nursing home use Diabetes mellitus complication status: with hyperglycemia Qualified Code(s): E11.65 - Type 2 diabetes mellitus with hyperglycemia; Z79.4 - terminal supervisor (current) use of insulin (5) GERD (gastroesophageal reflux disease) Status: Chronic Qualifiers: Esophagitis presence: esophagitis presence not specified Qualified Code(s): K21.9 - Gastro-esophageal reflux disease without esophagitis (6) Hypertension Status: Chronic Qualifiers: Hypertension type: primary hypertension Qualified Code(s): I10 - Essential (primary) hypertension (7) AICD (automatic cardioverter/defibrillator) present Status: Chronic (8) CHF (congestive heart failure) Status: Chronic Qualifiers: Heart failure type: unspecified Heart failure chronicity: acute on chronic Qualified Code(s): I50.9 - Heart failure, unspecified (9) History of cardiac arrhythmia Status: Chronic
[2021-07-13] MEDS: NovoLIN R (or HumuLIN R) SUBCUT PRN ×3 (11:21→20:24)
[2021-07-13] MEDS: NS 500 ML IV 500 ML IV SCH (11:23)
[2021-07-13] MEDS: SNACK - Diabetic Appropriate PO SCH (20:20)
[2021-07-13] MEDS: LANTUS SC SCH (20:21)
[2021-07-13] MEDS: NEURONTIN CAP 300 MG PO SCH (20:23)
[2021-07-13] MEDS: ULTRAM PO PRN (20:24)
[2021-07-14] MEDS: ULTRAM PO PRN (00:37)
[2021-07-14 04:59] LABS: BASOPHILS # (AUTO) 0.1 X10^3/uL (0.0-0.1); BASOPHILS % (AUTO) 0.8 % (0.2-1.0); EOSINOPHILS # (AUTO) 0.2 x10^3/uL (0.0-0.2); HEMATOCRIT 35.4 % (42.0-54.0); HEMOGLOBIN 11.9 g/dL (13.5-18.0); LYMPHOCYTES # (AUTO) 1.3 X10^3/uL (1.3-2.9); LYMPHOCYTES % (AUTO) 14.2 % (21.0-51.0); MEAN CORPUSCULAR HEMOGLOBIN 28.2 pg (27.0-34.0); MEAN CORPUSCULAR HGB CONC 33.6 g/dL (33.0-35.0); MEAN CORPUSCULAR VOLUME 83.8 fL (80.0-100.0); MEAN PLATELET VOLUME 9.2 fL (7.4-11.0); MONOCYTES # (AUTO) 1.3 x10^3/uL (0.3-0.8); MONOCYTES % (AUTO) 14.9 % (0.0-13.0); NEUTROPHILS % (AUTO) 68.1 % (42.0-75.0); RED BLOOD COUNT 4.23 X10^6/uL (4.7-6.0); RED CELL DISTRIBUTION WIDTH 14.8 % (11.6-16.5); WHITE BLOOD COUNT 8.8 X10^3/uL (3.6-10.0)
[2021-07-14 05:12] LABS: BLOOD UREA NITROGEN 20 mg/dL (7-18); CALCIUM 7.7 mg/dL (8.5-10.1); CARBON DIOXIDE 30.1 mmol/L (21-32); CHLORIDE 97 mmol/L (98-107); COR NA(FOR HYPERGLY) 136 mmol/L (136-145); CREATININE 0.76 mg/dL (0.70-1.30); SODIUM 134 mmol/L (136-145); eGFR NON BLACK RACES > 60 (>60)
[2021-07-14] MEDS: NovoLIN R (or HumuLIN R) SUBCUT PRN ×2 (06:00→11:59)
[2021-07-14] MEDS ORDERED: ZOLOFT ONE (07:42)
[2021-07-14] MEDS ORDERED: GLUCOPHAGE ONE (07:42)
[2021-07-14] MEDS: ALDACTONE TAB 25 MG PO SCH (08:04)
[2021-07-14] MEDS: CIPRO IV 400 MG PREMIX* 400 MG/200 ML IV.SOLN. IV SCH (08:04)
[2021-07-14] MEDS: ELIQUIS PO SCH (08:04)
[2021-07-14] MEDS: TOPROL XL PO SCH (08:05)
[2021-07-14] MEDS: ZOLOFT PO SCH (08:05)
[2021-07-14] MEDS: PriLOSEC PO SCH (08:05)
[2021-07-14] MEDS: LASIX IVP SCH (08:05)
[2021-07-14] MEDS: GLUCOPHAGE PO SCH (08:05)
--- NOTE | 2021-07-14 09:13 | W.DIS.FURT ---
Summary of Discharge Discharge Summary of Date Date of Exam: 07/14/21 Admission Date Date of Admission: 07/07/21 Admission Diagnosis Patient Problems (Updated 07/21/21 @ 10:24 by Tsering Arias) Leg wound, left (Acute) S81.802A COVID-19 (Acute) U07.1 AICD (automatic cardioverter/defibrillator) present (Chronic) Z95.810 CHF (congestive heart failure) (Chronic) I50.9 Diabetes mellitus, type 2 (Chronic) E11.9 Hypertension (Chronic) I10 History of cardiac arrhythmia (Chronic) Z86.79 GERD (gastroesophageal reflux disease) (Chronic) K21.9 Cellulitis of foot, left (Acute) L03.116 Dependent edema (Acute) R60.9 COVID-19 virus infection (Acute) U07.1 Hospital Course: Mr Gay is a 46y/o male with a PMH of cardiomyopathy s/p ACID, CHF, Type 2 DM, HTN, HLD and anxiety presented with worsening bilateral leg swelling, redness and drainage. Patient was seen here in the ER on 06/24/21 for URI and CHF Sx, found to be covid + so was transferred to [facility] for further care. Patient states he was admitted there for a week and treated for COVID pneumonia. He had a device check there and everything was working well. He states since he has been home, his leg swelling has worsened. He states his left leg has multiple open wounds and blisters with drainage. He also has SOB on exertion. Denies cough, fever or chills. He does see Cardiology in [place]. Patient remains on room air. In the ER, he was still covid +. He was admitted to ICU with covid protocol. He was started on IV lasix and IV antibiotics for bilateral leg wounds. He was on telemetry with strict I/Os and daily weight. His urine output was monitored closely. Patient's lower ext edema improved significantly with diuresis. His labs were monitored daily and electrolytes replaced as needed. Wound Cx were sent which grew Staph hemolyticus and Enterobacter cloacae. He was getting IV doxycycline and clindamycin. The drainage, swelling and erythema improved significantly. He was able to ambulate in the room. His dressings were changed daily. His FSBG was well-controlled. Patient was stable for discharge on oral antibiotics and will need home health services for wound care. Vital Signs: Vital Signs (72 hours) 07/11/21 09:41 07/11/21 10:00 07/11/21 10:11 Temperature Pulse Rate 97 H Respiratory Rate 18 16 18 Blood Pressure 108/70 O2 Sat by Pulse Oximetry 95 07/11/21 11:00 07/11/21 12:00 07/11/21 13:00 Temperature 98.4 F Pulse Rate 101 H 97 H 95 H Respiratory Rate 18 16 16 Blood Pressure 110/74 103/66 106/74 O2 Sat by Pulse Oximetry 96 96 96 07/11/21 14:00 07/11/21 15:00 07/11/21 16:00 Temperature 97.7 F Pulse Rate 95 H 86 92 H Respiratory Rate 16 18 16 Blood Pressure 112/76 105/60 103/68 O2 Sat by Pulse Oximetry 95 96 95 07/11/21 17:00 07/11/21 17:39 07/11/21 18:00 Temperature Pulse Rate 95 H 94 H Respiratory Rate 16 16 18 Blood Pressure 98/63 98/66 O2 Sat by Pulse Oximetry 96 96 07/11/21 18:39 07/11/21 19:00 07/11/21 20:00 Temperature 98.0 F Pulse Rate 93 H 90 Respiratory Rate 16 22 28 H Blood Pressure 97/66 107/73 O2 Sat by Pulse Oximetry 96 92 L 07/11/21 20:11 07/11/21 20:41 07/11/21 21:00 Temperature Pulse Rate 87 Respiratory Rate 18 18 18 Blood Pressure 94/59 O2 Sat by Pulse Oximetry 90 L 07/11/21 22:00 07/11/21 23:00 07/12/21 00:00 Temperature Pulse Rate 89 90 91 H Respiratory Rate 16 16 17 Blood Pressure 97/68 99/60 88/69 O2 Sat by Pulse Oximetry 94 L 95 95 07/12/21 01:00 07/12/21 02:00 07/12/21 03:00 Temperature Pulse Rate 96 H 96 H 96 H Respiratory Rate 18 16 14 Blood Pressure 98/68 101/68 101/65 O2 Sat by Pulse Oximetry 95 95 94 L 07/12/21 04:00 07/12/21 05:00 07/12/21 06:00 Temperature 98.4 F Pulse Rate 96 H 96 H 95 H Respiratory Rate 15 16 18 Blood Pressure 100/65 98/74 98/73 O2 Sat by Pulse Oximetry 94 L 94 L 95 07/12/21 07:00 07/12/21 08:00 07/12/21 08:12 Temperature 98.2 F Pulse Rate 95 H 93 H Respiratory Rate 16 18 16 Blood Pressure 99/72 93/70 O2 Sat by Pulse Oximetry 96 96 07/12/21 09:00 07/12/21 09:08 07/12/21 10:00 Temperature Pulse Rate 95 H 97 H Respiratory Rate 16 16 16 Blood Pressure 113/78 105/69 O2 Sat by Pulse Oximetry 96 95 07/12/21 11:00 07/12/21 12:00 07/12/21 13:00 Temperature 98.0 F Pulse Rate 93 H 90 91 H Respiratory Rate 16 16 16 Blood Pressure 108/69 105/74 104/72 O2 Sat by Pulse Oximetry 94 L 95 95 07/12/21 14:00 07/12/21 14:43 07/12/21 15:00 Temperature Pulse Rate 93 H 92 H Respiratory Rate 18 16 16 Blood Pressure 94/68 92/65 O2 Sat by Pulse Oximetry 95 95 07/12/21 15:09 07/12/21 16:00 07/12/21 17:00 Temperature 97.7 F Pulse Rate 94 H 93 H Respiratory Rate 16 16 16 Blood Pressure 97/77 93/72 O2 Sat by Pulse Oximetry 95 94 L 07/12/21 18:00 07/12/21 19:00 07/12/21 20:00 Temperature 98.1 F Pulse Rate 94 H 93 H 92 H Respiratory Rate 16 18 18 Blood Pressure 110/77 116/80 105/81 O2 Sat by Pulse Oximetry 95 90 L 96 07/12/21 20:19 07/12/21 21:00 07/12/21 21:19 Temperature Pulse Rate 88 Respiratory Rate 18 17 17 Blood Pressure 103/71 O2 Sat by Pulse Oximetry 90 L 07/12/21 22:00 07/12/21 23:00 07/13/21 00:00 Temperature 97.9 F Pulse Rate 92 H 94 H 93 H Respiratory Rate 22 18 18 Blood Pressure 108/81 112/83 110/84 O2 Sat by Pulse Oximetry 90 L 90 L 91 L 07/13/21 01:00 07/13/21 02:00 07/13/21 03:00 Temperature Pulse Rate 97 H 93 H 92 H Respiratory Rate 18 16 16 Blood Pressure 98/73 104/76 106/72 O2 Sat by Pulse Oximetry 92 L 91 L 91 L 07/13/21 04:00 07/13/21 05:00 07/13/21 06:00 Temperature 97.9 F Pulse Rate 90 96 H 96 H Respiratory Rate 18 17 17 Blood Pressure 90/68 119/74 108/79 O2 Sat by Pulse Oximetry 93 L 95 96 07/13/21 07:00 07/13/21 08:00 07/13/21 09:00 Temperature Pulse Rate 98 H 102 H 103 H Respiratory Rate 24 21 25 H Blood Pressure 107/76 108/71 105/78 O2 Sat by Pulse Oximetry 97 93 L 94 L 07/13/21 10:00 07/13/21 10:23 07/13/21 11:00 Temperature Pulse Rate 100 H 98 H 99 H Respiratory Rate 25 H 33 H 34 H Blood Pressure 107/76 101/68 103/78 O2 Sat by Pulse Oximetry 94 L 97 95 07/13/21 12:00 07/13/21 13:00 07/13/21 13:03 Temperature 97.7 F Pulse Rate 95 H 94 H 95 H Respiratory Rate 23 24 22 Blood Pressure 98/68 98/72 O2 Sat by Pulse Oximetry 96 94 L 91 L 07/13/21 14:00 07/13/21 15:00 07/13/21 16:00 Temperature Pulse Rate 93 H 93 H 93 H Respiratory Rate 23 23 23 Blood Pressure 100/70 109/82 115/74 O2 Sat by Pulse Oximetry 97 97 97 07/13/21 16:01 07/13/21 16:12 07/13/21 17:00 Temperature Pulse Rate 93 H 93 H Respiratory Rate 32 H 24 Blood Pressure 115/74 104/79 O2 Sat by Pulse Oximetry 94 L 95 07/13/21 18:00 07/13/21 19:00 07/13/21 20:00 Temperature 98.3 F Pulse Rate 95 H 92 H 90 Respiratory Rate 26 H 18 21 Blood Pressure 106/83 105/80 100/76 O2 Sat by Pulse Oximetry 92 L 91 L 87 L 07/13/21 20:24 07/13/21 21:00 07/13/21 21:24 Temperature Pulse Rate 89 Respiratory Rate 20 20 18 Blood Pressure 107/80 O2 Sat by Pulse Oximetry 88 L 07/13/21 22:00 07/13/21 23:00 07/14/21 00:00 Temperature 98.4 F Pulse Rate 91 H 93 H 92 H Respiratory Rate 18 18 20 Blood Pressure 103/77 96/72 101/70 O2 Sat by Pulse Oximetry 89 L 94 L 95 07/14/21 00:01 07/14/21 00:37 07/14/21 01:00 Temperature Pulse Rate 92 H 89 Respiratory Rate 22 20 17 Blood Pressure 101/70 106/76 O2 Sat by Pulse Oximetry 95 96 07/14/21 01:37 07/14/21 02:00 07/14/21 03:00 Temperature Pulse Rate 87 87 Respiratory Rate 14 16 15 Blood Pressure 98/69 99/75 O2 Sat by Pulse Oximetry 95 91 L 07/14/21 04:00 07/14/21 05:00 07/14/21 06:00 Temperature 98.4 F Pulse Rate 86 87 92 H Respiratory Rate 14 14 19 Blood Pressure 121/88 115/86 111/85 O2 Sat by Pulse Oximetry 97 93 L 93 L 07/14/21 07:00 Temperature Pulse Rate 89 Respiratory Rate 15 Blood Pressure 103/77 O2 Sat by Pulse Oximetry 96 Labs: Laboratory Last Values WBC 8.8 X10^3/uL (3.6-10.0) 07/14/21 03:55 RBC 4.23 X10^6/uL (4.7-6.0) L 07/14/21 03:55 Hgb 11.9 g/dL (13.5-18.0) L 07/14/21 03:55 Hct 35.4 % (42.0-54.0) L 07/14/21 03:55 MCV 83.8 fL (80.0-100.0) 07/14/21 03:55 MCH 28.2 pg (27.0-34.0) 07/14/21 03:55 MCHC 33.6 g/dL (33.0-35.0) 07/14/21 03:55 RDW 14.8 % (11.6-16.5) 07/14/21 03:55 Plt Count 214 X10^3/uL (150.0-450.0) 07/14/21 03:55 MPV 9.2 fL (7.4-11.0) 07/14/21 03:55 Neut % (Auto) 68.1 % (42.0-75.0) 07/14/21 03:55 Lymph % (Auto) 14.2 % (21.0-51.0) L 07/14/21 03:55 [place] % (Auto) 14.9 % (0.0-13.0) H 07/14/21 03:55 Eos % (Auto) 2.0 % (0.9-2.9) 07/14/21 03:55 Baso % (Auto) 0.8 % (0.2-1.0) 07/14/21 03:55 Neut # (Auto) 6.0 x10^3/uL (2.2-4.8) H 07/14/21 03:55 Lymph # (Auto) 1.3 X10^3/uL (1.3-2.9) 07/14/21 03:55 [place] # (Auto) 1.3 x10^3/uL (0.3-0.8) H 07/14/21 03:55 Eos # (Auto) 0.2 x10^3/uL (0.0-0.2) 07/14/21 03:55 Baso # (Auto) 0.1 X10^3/uL (0.0-0.1) 07/14/21 03:55 Absolute Nucleated RBC 0.1 /100WBC 07/14/21 03:55 Sodium 134 mmol/L (136-145) L 07/14/21 03:55 Corrected Sodium 136 mmol/L (136-145) 07/14/21 03:55 Potassium 3.7 mmol/L (3.5-5.1) 07/14/21 03:55 Chloride 97 mmol/L (98-107) L 07/14/21 03:55 Carbon Dioxide 30.1 mmol/L (21-32) 07/14/21 03:55 BUN 20 mg/dL (7-18) H 07/14/21 03:55 Creatinine 0.76 mg/dL (0.70-1.30) 07/14/21 03:55 Est GFR (MDRD) Af Amer > 60 (>60) 07/14/21 03:55 Est GFR (MDRD) Non-Af > 60 (>60) 07/14/21 03:55 Glucose 175 mg/dL (65-99) H 07/14/21 03:55 POC Glucose (mg/dL) 232 mg/dL (65-99) H 07/13/21 19:27 Calcium 7.7 mg/dL (8.5-10.1) L 07/14/21 03:55 Corrected Calcium 8.8 mg/dL (8.5-10.1) 07/08/21 04:47 Total Bilirubin 0.50 mg/dL (0.2-1.0) 07/08/21 04:47 AST 41 Units/L (15-37) H 07/08/21 04:47 ALT 78 Units/L (12-78) 07/08/21 04:47 Alkaline Phosphatase 281 Units/L (46-116) H 07/08/21 04:47 Creatine Kinase 40 Units/L (39-308) 07/08/21 00:14 CK-MB (CK-2) 1.4 ng/mL (0-4.0) 07/08/21 00:14 CK/CKMB % Calc 3.5 % (<4) 07/08/21 00:14 Troponin I High Sens 19.8 ng/L (4.0-60.0) 07/08/21 00:14 C-Reactive Protein 36.40 mg/L (0-3.0) H 07/13/21 04:35 B-Natriuretic Peptide 580 pg/mL (0-79) H* 07/13/21 04:35 Total Protein 6.5 g/dL (6.4-8.2) 07/08/21 04:47 Albumin 2.6 g/dL (3.4-5.0) L 07/08/21 04:47 Globulin 3.9 g/dL (2.5-4.5) 07/08/21 04:47 Albumin/Globulin Ratio 0.7 Ratio (1.1-2.1) L 07/08/21 04:47 Specimen Type Clean catch urine 07/08/21 02:42 Urine Color Yellow (YELLOW) 07/08/21 02:42 Urine Appearance Clear (CLEAR) 07/08/21 02:42 Urine pH 6.0 (5.0 - 8.0) 07/08/21 02:42 Ur Specific [place] 1.015 (1.000-1.030) 07/08/21 02:42 Urine Protein 1+ (NEGATIVE) 07/08/21 02:42 Urine Glucose (UA) 4+ (NEGATIVE) 07/08/21 02:42 Urine Ketones Negative (NEGATIVE) 07/08/21 02:42 Urine Occult Blood Negative (NEGATIVE) 07/08/21 02:42 Urine Nitrite Negative (NEGATIVE) 07/08/21 02:42 Urine Bilirubin Negative (NEGATIVE) 07/08/21 02:42 Urine Urobilinogen Normal (NORMAL) 07/08/21 02:42 Ur Leukocyte Esterase Negative (NEGATIVE) 07/08/21 02:42 Urine RBC None seen /HPF (0-3) 07/08/21 02:42 Urine WBC None seen /HPF (0-5) 07/08/21 02:42 Ur Squamous Epith Cells Negative /HPF (NEGATIVE) 07/08/21 02:42 Urine Bacteria Trace /HPF (NEGATIVE) 07/08/21 02:42 Hyaline Casts Few /LPF (NEGATIVE) 07/08/21 02:42 Ur Culture Indicated? No/not indicated 07/08/21 02:42 SARS CoV-2 RNA Rapid RUBEN Positive (NEGATIVE) A 07/08/21 01:34 Reason For Visit: CELLULITIS LEFT FOOT, DEPENDENT EDEMA, COVID Discharge Date Discharge Date: 07/14/21 Discharge Diagnosis All Active Problems (Updated 07/21/21 @ 10:24 by Tsering Arias) Leg wound, left (Acute) COVID-19 (Acute) AICD (automatic cardioverter/defibrillator) present (Chronic) CHF (congestive heart failure) (Chronic) Diabetes mellitus, type 2 (Chronic) Hypertension (Chronic) History of cardiac arrhythmia (Chronic) GERD (gastroesophageal reflux disease) (Chronic) Diabetic neuropathy (Chronic) Poorly controlled diabetes mellitus (Acute) Cellulitis of foot, left (Acute) Dependent edema (Acute) COVID-19 virus infection (Acute) Plan of Treatment: Continue with present treatment and follow up plan. Pt is to keep follow up appointment as instructed and take medications as ordered. Discharge Medications Discharge Medications: Penicillins Allergy (Verified 06/24/21 15:06) CONTINUE taking the following medications apixaban 5 mg PO BID 07/08/21 [History] atorvastatin 40 mg PO DAILY 07/08/21 [History] clonazepam 0.5 mg PO DAILY 07/08/21 [History] dicyclomine 20 mg PO BID PRN 07/08/21 [History] furosemide 40 mg PO BID 07/08/21 [History] insulin glargine [Lantus U-100 Insulin] 30 unit SUBCUT DAILYHS 07/08/21 [History] lisinopril 2.5 mg PO DAILY 07/08/21 [History] loratadine 10 mg PO DAILY 07/08/21 [History] metformin 500 mg PO BID 07/08/21 [History] metoprolol succinate 50 mg PO DAILY 07/08/21 [History] sertraline 100 mg PO DAILY 07/08/21 [History] spironolactone 25 mg PO DAILY 07/08/21 [History] New Prescriptions clindamycin HCl 300 mg PO TID 5 Days #15 cap 07/14/21 [Rx] doxycycline hyclate 100 mg PO BID 5 Days #10 cap 07/14/21 [Rx] potassium chloride 10 meq PO DAILY 30 Days #30 cap 07/14/21 [Rx] tramadol 50 mg PO Q6H PRN 7 Days #28 tab MDD 4 tabs 07/14/21 [Rx] Follow up and Referral Follow Up: 1 Week (PCP) Discharge Disposition Assessment: Stable no acute distress noted at time of discharge. Discharge Disposition: Home Discharge Condition: Stable Discharge Plan Discharge Plan Hospital Course: Mr Gay is a 46y/o male with a PMH of cardiomyopathy s/p ACID, CHF, Type 2 DM, HTN, HLD and anxiety presented with worsening bilateral leg swelling, redness and drainage. Patient was seen here in the ER on 06/24/21 for URI and CHF Sx, found to be covid + so was transferred to [facility] for further care. Patient states he was admitted there for a week and treated for COVID pneumonia. He had a device check there and everything was working well. He states since he has been home, his leg swelling has worsened. He states his left leg has multiple open wounds and blisters with drainage. He also has SOB on exertion. Denies cough, fever or chills. He does see Cardiology in [place]. Patient remains on room air. In the ER, he was still covid +. He was admitted to ICU with covid protocol. He was started on IV lasix and IV antibiotics for bilateral leg wounds. He was on telemetry with strict I/Os and daily weight. His urine output was monitored closely. Patient's lower ext edema improved significantly with diuresis. His labs were monitored daily and electrolytes replaced as needed. Wound Cx were sent which grew Staph hemolyticus and Enterobacter cloacae. He was getting IV doxycycline and clindamycin. The drainage, swelling and erythema improved significantly. He was able to ambulate in the room. His dressings were changed daily. His FSBG was well-controlled. Patient was stable for discharge on oral antibiotics and will need home health services for wound care. Patient Disposition: HOME HEALTH SERVICE Condition: Stable Health Concerns: Post Hospitalization: new medications and changes needed to prevent readmission or further decline. Pt educated and given instructions on all concerns. Care Plan Goals: Problem: Infection Goal: Temperature within normal limits. Resolved infection. Instructions: Follow provided instructions. Follow up with primary physician as directed. Contact primary care physician or report to the closest Emergency Room if condition worsens. Plan of Treatment: Continue with present treatment and follow up plan. Pt is to keep follow up appointment as instructed and take medications as ordered. Assessment: Stable no acute distress noted at time of discharge. Prescription drug monitoring program results: PDMP reviewed and no concerns identified Prescriptions: New potassium chloride 10 mEq Capsule, Extended Release 10 meq PO DAILY 30 Days Qty: 30 RF: 0 omeprazole 20 mg Capsule,Delayed Release(Dr/Ec) 20 mg PO BID 30 Days Qty: 60 RF: 0 Continued Novolin R Regular U-100 Insuln 100 UNIT/ML solution 0 units SUBCUT PER PROTOCOL PRNRF: 0 furosemide 40 mg tablet 40 mg PO BID RF: 0 spironolactone 25 mg tablet 25 mg PO DAILY RF: 0 Lantus U-100 Insulin 100 unit/mL Solution 30 unit SUBCUT DAILYHS RF: 0 atorvastatin 40 mg Tablet 40 mg PO DAILY RF: 0 clonazepam 0.5 mg Tablet 0.5 mg PO DAILY RF: 0 loratadine 10 mg Tablet 10 mg PO DAILY RF: 0 metformin 500 mg Tablet 500 mg PO BID RF: 0 sertraline 100 mg Tablet 100 mg PO DAILY RF: 0 apixaban 5 mg Tablet 5 mg PO BID RF: 0 metoprolol succinate 50 mg Tablet Extended Release 24 Hr 50 mg PO DAILY RF: 0 dicyclomine 20 mg Tablet 20 mg PO BID PRNRF: 0 Discontinued lisinopril 5 mg tablet 2.5 mg PO DAILY RF: 0 Follow ups/Referrals Follow ups/Referrals: MDMisc [Primary Care Provider] - 1 WEEK ([facility]) Instructions Instructions: Diabetes Mellitus and Foot Care, Diabetes Mellitus and Sick Day Management, Hyperglycemia, [id number], Heart Failure, Self Care, [id number], Form - Daily Diabetes Record, COVID-19, Cellulitis, Adult, [id number], Hypertension, Adult, [id number], Form - Blood Pressure Record Sheet, Form - Daily Weight Record Activity Restrictions/Additional Instructions: Do not take lisinopril until seen by primary care. Check blood pressure daily Check weight daily Follow up with cardiology as scheduled Call the [facility] and make a follow up appointment with your primary care physician. Keep cardiology follow up. Home Health Nurse services referral sent to [facility] for medical management, wound and dressing management. Dressing change: Clean with normal saline, apply telfa apply telfa then wrap with adithya then wrap with DORCAS bandage daily. Keep left arm elevated due to edema. If no improvement follow up with PCP or return to the emergency room for evaluation. Stand Alone Forms: Precautions for COVID19, [facility], Patient Portal, Social Distancing
[2021-07-14 13:27] VITALS: BP 105/68
== END 2021-07-14 13:50 | disposition home health service (06) | DRG 178 ==
LOC: ICU 22:26 → ER 22:26 → OBSVTOIN 07-08 03:14 → ICU 07-08 04:04
PROVIDERS: ADMIT Family Medicine; ATTEND Family Medicine
DX: S81.802A Unspecified open wound, left lower leg, initial encounter; Z86.79 Personal history of other diseases of the circulatory system; B96.89 Other specified bacterial agents as the cause of diseases classified elsewhere; I11.0 Hypertensive heart disease with heart failure; R06.02 Shortness of breath; Z95.810 Presence of automatic (implantable) cardiac defibrillator; U07.1 COVID-19; Z79.4 Long term (current) use of insulin; R94.31 Abnormal electrocardiogram [ECG] [EKG]; L03.116 Cellulitis of left lower limb; E11.65 Type 2 diabetes mellitus with hyperglycemia; B95.7 Other staphylococcus as the cause of diseases classified elsewhere; R60.0 Localized edema; K21.9 Gastro-esophageal reflux disease without esophagitis; I50.9 Heart failure, unspecified; R79.82 Elevated C-reactive protein (CRP)